=== PATIENT | female | born 2000 | race Caucasian/White ===

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

== ENCOUNTER 2021-12-06 11:25 | Emergency (ER) | payer OTHER, MEDICAID, SELFPAY ==
[2021-12-06 11:40] VITALS: BP 116/63; PULSE 92; RESP 20; TEMP 36.6; O2SAT 100
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
== END 2021-12-06 14:32 | disposition home or self-care (01) ==
PROVIDERS: Emergency Provider Registered Nurse
DX: J30.9 Allergic rhinitis, unspecified (principal); H60.311 Diffuse otitis externa, right ear
CPT/HCPCS: 99213; G0463

== ENCOUNTER 2023-08-22 12:05 | Emergency (ER) | payer OTHER, BC, SELFPAY ==
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
[2023-08-22 12:17] VITALS: BP 123/68; PULSE 86; RESP 16; TEMP 37; O2SAT 100
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
== END 2023-08-22 12:45 | disposition home or self-care (01) ==
PROVIDERS: Emergency Provider Nurse Practitioner Family
DX: R07.81 Pleurodynia (principal); F17.290 Nicotine dependence, other tobacco product, uncomplicated
CPT/HCPCS: 71046; 71100; 99213; G0463

== ENCOUNTER 2023-09-14 19:09 | Emergency (ER) | payer OTHER, BC, SELFPAY ==
[2023-09-14 19:22] VITALS: BP 123/77; PULSE 95; RESP 18; TEMP 36.9; O2SAT 100
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
[2023-09-14 20:18] LABS: EDSTREPNEGPOS1 Presumptive Negative
== END 2023-09-14 20:20 | disposition home or self-care (01) ==
PROVIDERS: Emergency Provider Registered Nurse
DX: J02.9 Acute pharyngitis, unspecified (principal); Z20.822 Contact with and (suspected) exposure to COVID-19; F17.290 Nicotine dependence, other tobacco product, uncomplicated
CPT/HCPCS: 87081; 87426; 87880; 99213; G0463

== ENCOUNTER 2023-11-15 13:58 | Emergency (ER) | payer OTHER, BC, SELFPAY ==
--- NOTE | ~2023-11-15 | XR_ITS ---
EXAMINATION: XR foot RT min 3V DATE: 11/15/2023 14:50 INDICATION: Right foot pain. Injury. TECHNIQUE: 3 views of right foot were obtained. COMPARISON: None. FINDINGS: Alignment is normal. No fracture. Joint spaces are normal. There is an enthesophyte at plan tar aspect of calcaneal tuberosity. IMPRESSION: 1. No fracture. Reviewed, dictated and finalized at location A. IMPRESSION: 1. No fracture.
[2023-11-15 14:10] VITALS: BP 129/83; PULSE 60; RESP 15; TEMP 36.6; O2SAT 100
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
== END 2023-11-15 15:20 | disposition home or self-care (01) ==
PROVIDERS: Emergency Provider Nurse Practitioner Family
DX: S93.504A Unspecified sprain of right lesser toe(s), initial encounter (principal); W22.01XA Walked into wall, initial encounter; F17.290 Nicotine dependence, other tobacco product, uncomplicated
CPT/HCPCS: 73630; 99213; G0463

== ENCOUNTER 2024-03-31 11:17 | Emergency (ER) | payer BC, SELFPAY ==
[2024-03-31 11:22] VITALS: BP 126/69; PULSE 102; RESP 18; TEMP 36.4; O2SAT 100
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
--- OUTSIDE RECORDS SUMMARY | 2024-03-31 11:42 | XMS_ITS | Patient Health Summary ---
Author Organization [facility] Address [address] [place] [address] Care Team Providers Care Analytics Associate Name Role Phone Yovani Negron MD Primary Care Provider [phone] Note from [facility],non-owned Affiliates and Associated Physician Practices is amultiple site organization consisting of ambulatory clinics and hospital sitesin [place], [place], [place] and [place]. This disclosure is being madepursuant to the Care Everywhere program and may not contain all information available regarding this patient. Last updated 17.[facility] Allergies * Adhesive Sensitivity(Rash) -Medium Criticality * Lactose(GI Discomfort) Medications * Be aware that medications may not be up to date on this document. Alwaysverify current medications with the patient. * pantoprazole EC (Protonix) 40 MG tablet(Started 11/19/2021) TAKE 1 TABLET BY MOUTH EVERY DAY Active Problems Problem Noted Date Diagnosed Date Pre-op testing 06/25/2021 Deficiency of other specified B group vitamins 0 08/19/2016 Developmental disorder of scholastic skills 08/08 Major depressive disorder, single episode, moder ate 08/19/2016 Generalized anxiety disorder 08/19/2016 Vitamin D deficiency 06/17/2016 Lichen simplex chronicus 05/08/2014 Excessive and frequent menstruation with regular cycle 04/11/2014 Heartburn 05/02/2012 Resolved Problems Problem Noted Date Diagnosed Date Resolved Date Chlamydia 10/07/2018 06/21/2019 Presence of (intrauterine) c ontraceptive device 10/02/2016 10/07/2018 Encounter for immunization 04/11/2014 0 08/01/2018 Immunizations * Covid Moderna primary monovalent 12+ yr 0.5mL(Given 06/11/2020, 04/20/2020) * DTAP/IPV(Given 10/22/2006) * DTaP VACCINE IM (6wk-6yrs)(Given 10/02/2005, 2001, 2001, 2001) * HEP A PEDS 2 DOSE(Given 10/02/2005) * HEP A VACCINE, ADULT(Given 10/02/2016, 10/02/2005) * HIB-HAEMOPHILUS INFLUENZAE B CONJUGATE VACCINE(Given 2001, 2001, 2001) * HIB-PRP-T 4 DOSE(Given 10/22/2006, 2001, 2001, 2001) * HepB Unspecified formulation(Given 2001, 2001, 2001) * Human Papilloma Virus Ninevalent Vaccine(Given 10/02/2016) * Human Papilloma Virus Quadrivalent Vaccine(Given 08/08/2014) * MENINGOCOCCAL CONJUGATE (MCV4P)(Given 10/02/2016) * MMR/VARICELLA(Given 10/22/2006, 10/02/2005) * PNEUMOCOCCAL PCV7 CONJ, PEDS(Given 10/02/2005) * POLIO IPV(Given 10/02/2005, 2001, 2001, 2001) * Pneumococcal Pcv13 Conj(Given 02/27/2002) * TDAP (7yrs+)(Given 02/08/2013) Social History Tobacco Use Types Packs/Day Years Used Date Smoking Tobacco: Former Cigarettes Smokeless Tobacco: Never Tobacco Cessation:Counseling Given: Not Answered Alcohol Use Standard Drinks/Week Comments Yes 0 (1 standard drink = 0.6 oz pur e alcohol) occasionally PHQ-2 Answer Date Recorded PHQ2 TOTAL SCORE 0 05/20/2021 Comments Yes Sex and Gender Information Value Date Recorded Sex Assigned at Not on file Gender Identity Not on file Sexual Orientation Not on file Last Filed Vital Signs Vital Sign Reading Time Taken Comments Blood Pressure 111/68 03/02/2022 9:24 AM SCIENTIFIC HELPER Pulse 67 03/02/2022 9:24 AM SCIENTIFIC HELPER Temperature 36.6 C (97.9 F) 06/25/2021 11:43 AM CDT Respiratory Rate 12 06/25/2021 12:00 PM CDT Oxygen Saturation 99% 06/25/2021 12:00 PM CDT Inhaled Oxygen Concentration - - Weight 96.6 kg (213 lb) 03/02/2022 9:24 AM SCIENTIFIC HELPER Height 160 cm (5' 3 ) 03/02/2022 9:24 AM SCIENTIFIC HELPER Body Mass Index 37.73 03/02/2022 9:24 AM SCIENTIFIC HELPER Procedures * IN REMOVE CERUMEN IMPACTED W INSTR AUGUSTO(Performed 03/02/2022) Performed for Bilateral impacted cerumen * AUDIOLOGY/TYMPANOMETRY ORDER(Performed 03/02/2022) * IN REMOVE CERUMEN IMPACTED W INSTR AUGUSTO(Performed 10/20/2021) Performed for Ear itching * PATHOLOGY TISSUE(Performed 06/25/2021) Performed for Acute superficial gastritis with hemorrhage, Melena * IN ED EGD FLEX TRANSORAL DX(Performed 06/25/2021) Performed for Acute superficial gastritis with hemorrhage, Melena * EGD(Performed 06/25/2021) * HCG URINE QUALITATIVE - POCT (IP) INTERFACED(Performed 06/25/2021) * HCG URINE QUAL POCT NOTIFICATION(Performed 06/25/2021) Performed for Pre-op testing * CBC W AUTO DIFFERENTIAL(Performed 05/21/2021) Performed for Abdominal pain, RUQ (right upper quadrant) * COMPREHENSIVE METABOLIC PANEL(Performed 05/21/2021) Performed for Abdominal pain, RUQ (right upper quadrant) * US ABDOMEN LIMITED(Performed 05/21/2021) Performed for Right upper quadrant abdominal pain * HCG BETA BLOOD QUANTITATIVE(Performed 02/05/2021) Performed for Bleeding in early (HCC) * IN EAR MICROSCOPY EXAMINATION(Performed 01/15/2021) Performed for Ear itching * AUDIOLOGY/TYMPANOMETRY ORDER(Performed 01/15/2021) * CULTURE URINE(Performed 12/14/2019) Performed for Routine screening for STI (sexually transmitted infection) * C. TRACHOMATIS + N. GONORRHOEAE + TRICH TASHA(Performed 12/13/2019) Performed for Routine screening for STI (sexually transmitted infection) * HCG URINE QUALITATIVE - POINT OF CARE (AMB)(Performed 12/13/2019) Performed for Negative test * URINALYSIS - POINT OF CARE (AMB) SLU(Performed 12/28/2018) Performed for Abdominal pain, unspecified abdominal location * CHLAMYDIA + GC AMPLIFIED PROBE(Performed 12/14/2018) Performed for Exposure to STD * IN EAR MICROSCOPY EXAMINATION(Performed 12/14/2018) Performed for Right ear pain, Decreased hearing of right ear * CULTURE URINE(Performed 12/13/2018) Performed for Acute cystitis without hematuria * IN REMOVAL NON-BIODEG DRUG DELIV IMPLANT(Performed 10/10/2018) Performed for Nexplanon removal * CHLAMYDIA + GC AMPLIFIED PROBE(Performed 10/05/2018) Performed for Painful urination, Screening examination for STD (sexually transmitted disease) * CULTURE URINE(Performed 10/05/2018) Performed for Painful urination * URINALYSIS - POINT OF CARE (AMB) [facility]U(Performed 10/05/2018) Performed for Painful urination * XR FOOT RIGHT 3VW OR MORE(Performed 08/01/2018) Performed for Injury of right foot, initial encounter * CHLAMYDIA + GC + TRICH DNA AMPL(Performed 07/25/2018) Performed for Screen for STD (sexually transmitted disease) * WET PREP - POINT OF CARE (AMB) [facility](Performed 05/17/2018) Performed for Lichen simplex chronicus * CHLAMYDIA + GC AMPLIFIED PROBE(Performed 05/17/2018) Performed for History of chlamydia infection * CULTURE YEAST WITH DIRECT FLUORESCENT USSAN(Performed 05/17/2018) Performed for Lichen simplex chronicus * PH FLUID - POCT (AMB) SLU(Performed 05/17/2018) Performed for Lichen simplex chronicus * FUNGUS SUSAN - POINT OF CARE (AMB) [facility]U(Performed 05/17/2018) Performed for Lichen simplex chronicus * CHLAMYDIA+GC TASHA PAP VIAL(Performed 10/05/2016) * URINALYSIS - POINT OF CARE (AMB) SLU(Performed 10/02/2016) * HCG URINE QUALITATIVE - POCT (IP) [facility](Performed 07/27/2016) * CHLAMYDIA+GC TASHA PAP VIAL(Performed 07/27/2016) * CHLAMYDIA+GC TASHA PAP VIAL(Performed 06/18/2016) * LAB HISTORICAL RESULTS-ONBASE(Performed 06/18/2016) * HCG URINE QUALITATIVE - POCT (IP) [facility](Performed 06/16/2016) * RPR W REFLEX CONFIRM(Performed 06/16/2016) * VITAMIN D 25-HYDROXY(Performed 06/16/2016) * VITAMIN B12(Performed 06/16/2016) * HIV-1 HIV-2 ANTIGEN/ANTIBODY(Performed 06/16/2016) * TSH(Performed 06/16/2016) * CBC W AUTO DIFFERENTIAL(Performed 06/16/2016) * PH FLUID - POCT (AMB) SLU(Performed 01/02/2015) * WET PREP - POINT OF CARE (AMB) SLU(Performed 01/02/2015) * FUNGUS SUSAN - POINT OF CARE (AMB) [facility](Performed 01/02/2015) * PH FLUID - POCT (AMB) SLU(Performed 05/08/2014) * FUNGUS SUSAN - POINT OF CARE (AMB) [facility](Performed 05/08/2014) * WET PREP - POINT OF CARE (AMB) [facility]U(Performed 05/08/2014) * CULTURE FUNGUS OTHER+FUNGUS SMEAR(Performed 05/08/2014) * CULTURE FUNGUS OTHER+FUNGUS SMEAR(Performed 05/04/2012) * WET PREP - POINT OF CARE (AMB) SLU(Performed 05/02/2012) * FUNGUS SUSAN - POINT OF CARE (AMB) [facility](Performed 05/02/2012) Results * IN REMOVE CERUMEN IMPACTED W INSTR AUGUSTO (03/02/2022 9:50 AM SCIENTIFIC HELPER) Narrative Sami Ward MD - 03/02/2022 9:50 AM SCIENTIFIC HELPER Sami Ward MD 03/02/2022 10:11 AM Procedure Note: Cerumen Removal Procedure Details: Informed consent was obtained. The patient was placed in the supine position. The operative microscope used to visualize both ear canals. Large amounts of moderate-severely impacted cerumen were removed with currette and suction. A normal tympanic membrane was then appreciated. The patient tolerated the procedure without complication. The following findings were noted: Mildly narrow canals bilaterally with moderately impacted soft cerumen. Intact TMs with normal landmarks. The patient tolerated procedure well. Complications: None Dr. Luna was present for the entirety of the procedure. Richard Luna MD PROCEDURE/MINOR SURG ICAL ORDERABLES * AUDIOLOGY/TYMPANOMETRY ORDER (03/02/2022 9:03 AM SCIENTIFIC HELPER) Darshan Miller, PhD - 03/02/2022 9:19 AM SCIENTIFIC HELPER Shaina Patel is a 22 year old female was seen for an assessment of their hearing. The patient reports no noted difficulties but has a history of cerumen impaction. There is a report of dizziness. There is a report of tinnitus. There is a report of otalgia. There is not a report of noise exposure. There is a history of hearing loss in the family. There is not a history of previous ear surgery. Results: Puretone air/bone conduction testing revealed normal hearing in the right ear and normal hearing in the left ear. Speech Party Plan Sales Director Thresholds is in good agreement with pure tone average(see speech audiometry for details). Findings were reviewed and discussed with Shaina Patel following the hearing evaluation. Plan: 1. The risks and benefits of my recommendations, as well as other treatment options were discussed today. 2. I recommend that the patient follow up with their facility, ENT or PCP PRN. Darshan Sampson, Ph.D., JANEL., CCC-A Stock Feeder Director, Division of Audiology Department of Otolaryngology- Head & Neck Surgery [facility] Darshan Sampson PhD AUDIOLOGY SERVICES O RDERABLES * IN REMOVE CERUMEN IMPACTED W INSTR UAGUSTO (10/20/2021 2:06 PM CDT) Richard Vick MD - 10/20/2021 2:06 PM CDT Richard Luna MD 10/20/2021 2:09 PM Wet ears bilateral : both ear cleaned under microscope with suctions. cnal wet bilateral middle ear healthy bilateral. mycelog applied to both ears. Richard Luna MD PROCEDURE/MINOR SURG ICAL ORDERABLES * PATHOLOGY TISSUE (06/25/2021 11:21 AM CDT) Case Report Surgical Pathology Report Case: [id number] Authorizing Provider: Julissa Dominguez MD Collected: 06/25/2021 11:21 AM Ordering Location: [facility] Received: 06/25/2021 01:26 PM Pathologist: Jessa Villanueva MD Specimens: A) - Duodenum, random duodenum biopsies- patchy white spotes B) - Gastric, random gastric biopsies - rule out h Pylori 06/26/2021 11:58 AM [facility] Final Diagnosis Small intestine, duodenum patchy white spots, biopsy (A): - Superficial mucosa with no histopathologic abnormality - See comment Stomach, random, biopsy (B): - No histopathologic abnormality - No active inflammation or H. pylori organisms (H&E examination) 06/26/2021 11:58 AM [facility] Microscopic Description and Comment Sections of the duodenum patchy white spots (A) show only superficial mucosa with normal findings for site; deeper involvement by lymphangiectasia or submucosal lesion cannot be assessed. 06/26/2021 11:58 AM [facility] Clinical History The patient is a 21-year-old woman with nausea, vomiting, abdominal pain and melena over one week duration. Operative procedure/findings: EGD - diminutive white patches randomly in the second portion of the duodenum, biopsied; patchy gastric erythema and rare erosions, random biopsies to rule out H. pylori. 06/26/2021 11:58 AM [facility] Gross Description The requisition and specimen(s) are identified with the patient's name Shaina Patel. Received in formalin, specimen A , are 4 pink-khan tissues, 0.1-0.3 cm in greatest dimension and 0.7 x 0.2 x 0.2 cm in aggregate, submitted in toto in cassette A1. Received in formalin, specimen B , are 3 pink-khan tissues, 0.1-0.4 cm in greatest dimension and 0.8 x 0.2 x 0.2 cm in aggregate, submitted in toto in cassette B1. DF 06/26/2021 11:58 AM [facility] Disclaimer The performance characteristics of all immunohistochemical and indirect immunofluorescence stains (if any) cited in this report were determined by the Histopathology Laboratory of [facility]. Some of these tests were developed by our own laboratory and have not been cleared or approved by the US Food and Drug Administration. The FDA does not require this test to go through premarket FDA review. These tests are used for clinical purposes. They should not be regarded as investigational or for research. This laboratory is certified under the Clinical Laboratory Improvement Amendments (CLIA) as qualified to perform high complexity clinical laboratory testing. This case has been personally reviewed and interpreted by the attending (teaching) pathologist. 06/26/2021 11:58 AM CDT [facility] Embedded Images 06/26/2021 11:58 AM CDT [facility] Biopsy, NOS PART OF DUODENUM / Unknown 06/25/2021 11:21 AM CDT 06/25/2021 1:26 PM CDT Comment:Pre-op diagnosis: Acute superficial gastritis with hemorrhage [K29.01] Melena [K92.1] Vomiting, history of melena Biopsy, NOS GASTRIC CONTENTS SPECIMEN / Unknown 06/25/2021 11:22 AM CDT 06/25/2021 1:26 PM CDT Comment:Pre-op diagnosis: Acute superficial gastritis with hemorrhage [K29.01] Melena [K92.1] Vomiting, history of melena Julissa Dominguez MD LAB - PATHOLOGY/CYTO LOGY ORDERABLES Performing Organization Address City/State/[facility] Co de Phone Number [facility] [address] [phone] * EGD (06/25/2021 11:01 AM CDT) Report Endoscopy POC Endoscopy Department Report __ _ Patient Name: Shaina Patel Procedure Date: 06/25/2021 11:01 AM Date of : 2000 Classification: Outpatient Gender: Female Ethnicity: Not or Race: White __ _ Providers: Julissa Dominguez MD, Eneida Turner (Fellow) Referring MD: Yovani Negron (Referring MD) Procedure: Upper GI endoscopy Indications: Epigastric abdominal pain, Melena Medications: Monitored Anesthesia Care Description of Procedure: Pre-Anesthesia Assessment: - Prior to the procedure, a History and Physical was performed, and patient medications and allergies were reviewed. The patient's tolerance of previous anesthesia was also reviewed. The risks and benefits of the procedure and the sedation options and risks were discussed with the patient. All questions were answered, and informed consent was obtained. Prior Anticoagulants: The patient has taken no previous anticoagulant or antiplatelet agents. ASA Grade Assessment: II - A patient with mild systemic disease. After reviewing the risks and benefits, the patient was deemed in satisfactory condition to undergo the procedure. After obtaining informed consent, the endoscope was passed under direct vision. Throughout the procedure, the patient's blood pressure, pulse, and oxygen saturations were monitored continuously. The Endoscope was introduced through the mouth, and advanced to the second part of duodenum. The upper GI endoscopy was accomplished without difficulty. The patient tolerated the procedure well. Findings: Esophagogastric landmarks were identified: the Z-line was found at 36 cm, the gastroesophageal junction was found at 36 cm and the site of hiatal narrowing was found at 39 cm from the incisors. The Z-line was slightly irregular. A 4 cm hiatal hernia was present. A few localized erosions and erythema with no bleeding and no stigmata of recent bleeding were found in the gastric body. Biopsies were taken with a cold forceps for Helicobacter pylori testing. The cardia and gastric fundus were normal on retroflexion. Scattered mild mucosal changes characterized by punctated white spots were found in the second portion of the duodenum. Biopsies were taken with a cold forceps for histology. Estimated Blood Loss: Estimated blood loss was minimal. Complications: No immediate complications. Impression: - Esophagogastric landmarks identified. - Z-line irregular. - 4 cm hiatal hernia. - Gastric erosions and erythema with no bleeding and no stigmata of recent bleeding. Biopsied. - Mucosal changes in the duodenum. Biopsied. Recommendation: - Patient has a contact number available for emergencies. The signs and symptoms of potential delayed complications were discussed with the patient. Return to normal activities tomorrow. Written discharge instructions were provided to the patient. - Resume previous diet. - Continue present medications. - Await pathology results. - No aspirin, ibuprofen, naproxen, or other non-steroidal anti-inflammatory drugs. - Continue PPI - Return to referring physician as previously scheduled. - Follow up in GI clinic appointment will be scheduled. Attending Participation: I was present and participated during the entire procedure, including non-flores portions. Procedure Code(s): --- Professional --- 10436, Esophagogastroduode noscopy, flexible, transoral; with biopsy, single or multiple Diagnosis Code(s): --- Professional --- K22.8, Other specified diseases of esophagus K44.9, Diaphragmatic hernia without obstruction or gangrene K25.9, Gastric ulcer, unspecified as acute or chronic, without hemorrhage or perforation K31.89, Other diseases of stomach and duodenum R10.13, Epigastric pain K92.1, Melena (includes Hematochezia) CPT copyright 2019 [employer]. All rights reserved. The codes documented in this report are preliminary and upon health promoter review may be revised to meet current compliance requirements. Julissa Dominguez MD 06/25/2021 11:34:36 AM This report has been signed electronically. Note Initiated On: 06/25/2021 11:01 AM Number of Addenda: [address] 06/25/2021 11:0 1 AM CDT Julissa Dominguez MD GI PROCEDURE ORDERAB L[facility] * HCG URINE QUALITATIVE - POCT (IP) INTERFACED (06/25/2021 10:29 AM CDT) HCG Qual Urine Negative Negative 06/25/2021 10:36 AM CDT [facility] Urine URINE / Unknown 06/25/2021 1 0:29 AM CDT 06/25/2021 10:36 AM CDT Julissa Dominguez MD LAB - POINT OF CARE ORDERABLES [facility] [address] [place] [id number], [facility] [phone] * HCG URINE QUAL POCT NOTIFICATION (06/25/2021 10:24 AM CDT) Comment Notification Label Only - See Separate Report 06/25/2021 11:34 AM CDT [facility] Urine URINE / Unknown 06/25/2021 1 0:24 AM CDT 06/25/2021 10:24 AM CDT Julissa Dominguez MD LAB - URINALYSIS ORD ERABLES Performing Organization Address City/[facility]/ZIP Co de Phone Number [address] [address], [facility] [phone] * CBC WITH DIFFERENTIAL (05/21/2021 2:05 PM CDT) Only the most recent of2 resultswithin the time period is included. WBC 6.5 3.5 - 10.5 10 3/uL 05/21/2021 2:39 PM [facility] RBC 4.37 3.80 - 5.20 10 6/uL 05/21/2021 2:39 PM [facility] Hemoglobin 13.2 12.0 - 15.6 g/dL 05/21/2021 2:39 PM [facility] Hematocrit 40.2 35.0 - 45.0 % 05/21/2021 2:39 PM [facility] MCV 92.0 80.7 - 98.3 fL 05/21/2021 2:39 PM [facility] MCH 30.2 26.7 - 34.0 pg 05/21/2021 2:39 PM [facility] MCHC 32.8 30.8 - 35.9 g/dL 05/21/2021 2:39 PM [facility] Platelet Count 274 150 - 400 10 3/uL 05/21/2021 2:39 PM [facility] RDW-SD 43.0 36.0 - 50.0 fL 05/21/2021 2:39 PM [facility] RDW-CV 12.7 11.2 - 14.8 % 05/21/2021 2:39 PM [facility] MPV 10.3 9.4 - 12.9 fL 05/21/2021 2:39 PM [facility] nRBC Absolute 0.00 0 10 3/uL 05/21/2021 2:39 PM [facility] nRBC Auto 0.0 0 /100 WBC 05/21/2021 2:39 PM [facility] Neutrophils % 54.8 35.0 - 70.0 % 05/21/2021 2:39 PM [facility] Lymphocytes % 33.8 20.0 - 43.0 % 05/21/2021 2:39 PM [facility] Monocytes % 7.7 5.0 - 13.0 % 05/21/2021 2:39 PM [facility] Eosinophils % 2.5 0.0 - 6.0 % 05/21/2021 2:39 PM [facility] Basophil % 0.9 0.0 - 2.0 % 05/21/2021 2:39 PM [facility] Neutrophils Absolute 3.5 1.6 - 7.0 10 3/uL 05/21/2021 2:39 PM [facility] Lymphocyte Absolute 2.2 1.1 - 3.9 10 3/uL 05/21/2021 2:39 PM [facility] Monocytes Absolute 0.50 0.26 - 1.07 10 3/uL 05/21/2021 2:39 PM [facility] Eosinophils Absolute 0.16 0.00 - 0.47 10 3/uL 05/21/2021 2:39 PM [facility] Basophils Absolute 0.06 0.00 - 0.08 10 3/uL 05/21/2021 2:39 PM [facility] Immature Granulocytes % 0.3 0.0 - 1.0 % 05/21/2021 2:39 PM [facility] Immature Granulocytes Absolute 0.02 05/21/2021 2:39 PM [facility] Blood BLOOD SPECIMEN / Unknown Lab Venipuncture / Unknown 05/21/2021 2:05 PM CDT 05/21/2021 2:31 PM CDT Adwoa Covington PA-C LAB - HEMATOLOGY OR DERABLES [facility] [address] [place] [address], [facility] [phone] * COMPREHENSIVE METABOLIC PANEL (05/21/2021 2:05 PM CDT) BUN 13 7 - 26 mg/dL 05/21/2021 2:59 PM [facility] Creatinine 0.69 0.56 - 0.96 mg/dL 05/21/2021 2:59 PM [facility] Sodium 143 136 - 145 mmol/L 05/21/2021 2:59 PM [facility] Potassium 3.5 3.5 - 4.5 mmol/L 05/21/2021 2:59 PM [facility] Chloride 106 98 - 107 mmol/L 05/21/2021 2:59 PM [facility] CO2 24 22 - 29 mmol/L 05/21/2021 2:59 PM [facility] Glucose 92 70 - 115 mg/dL 05/21/2021 2:59 PM [facility] Calcium 9.2 8.4 - 10.2 mg/dL 05/21/2021 2:59 PM [facility] Protein Total 7.3 6.0 - 8.3 g/dL 05/21/2021 2:59 PM [facility] Albumin 4.3 3.4 - 5.0 g/dL 05/21/2021 2:59 PM [facility] Bilirubin Total 0.6 0.2 - 1.2 mg/dL 05/21/2021 2:59 PM [facility] Alkaline Phosphatase 62 40 - 150 U/L 05/21/2021 2:59 PM [facility] ALT 18 5 - 55 U/L 05/21/2021 2:59 PM [facility] AST 17 5 - 34 U/L 05/21/2021 2:59 PM CDT [facility] Anion Gap 17 8 - 18 05/21/2021 2:59 PM CDT [facility] BUN/Creatinine Ratio 19 7 - 23 05/21/2021 2:59 PM CDT [facility] Osmolality Calculated 296 270 - 300 mOsm/kg 05/21/2021 2:59 PM CDT [facility] Albumin/Globulin Ratio 1.4 1.1 - 2.3 05/21/2021 2:59 PM CDT [facility] eGFR by CKD-EPI >90 >=90 mL/min/1.7 3 m2 05/21/2021 2:59 PM CDT [facility] Blood BLOOD SPECIMEN / Unknown Lab Venipuncture / Unknown 05/21/2021 2:05 PM CDT 05/21/2021 2:31 PM CDT Adwoa Covington PA-C LAB - CHEMISTRY ORD ERABLES [facility] [address] [place] [address], [facility] [phone] * US ABDOMEN LIMITED (05/21/2021 1:53 PM CDT) Anatomical Region Laterality Modality Abdomen Ultrasound 05/21/2021 2:09 PM CDT Impressions 05/21/2021 2:34 PM CDT IMPRESSION: 1.No discrete hepatic lesion or intrahepatic biliary dilation. Patent hepatic vasculature. 2.No evidence of cholelithiasis or acute cholecystitis. Dictated by Neeraj Gordillo MD (Resident). IDr. Garcia M.D. have personally reviewed and interpreted this examination/study. This report was electronically signed by Garcia AKINS M.D. on 05/21/2021 2:34 PM . Narrative 05/21/2021 2:34 PM CDT EXAM: Limited abdominal ultrasound HISTORY: R10.11: Right upper quadrant abdominal pain COMPARISON: No comparison images are available in the PACS system at the time of this dictation. FINDINGS: The liver is normal in echotexture and echogenicity with a smooth surface contour. No discrete hepatic mass or intrahepatic biliary dilatation is seen. Color Doppler evaluation demonstrates patency of the hepatic and portal veins. No gallstone, gallbladder wall thickening or pericholecystic fluid is seen. Sonographic Johns's sign is negative. The common bile duct measures 4 mm. The right kidney measures 11.6 x 3.6 x 4.6 cm. Limited views of the right kidney show no hydronephrosis, nephrolithiasis, or solid renal mass. The visible pancreas is normal in echogenicity. The spleen measures 11.5 cm. A 2.1 x 2 cm splenule is seen at splenic hilum. No ascites is present. Procedure Note Ade Akins MD - 05/21/2021 EXAM: Limited abdominal ultrasound HISTORY: R10.11: Right upper quadrant abdominal pain COMPARISON: No comparison images are available in the PACS system at the time of this dictation. FINDINGS: The liver is normal in echotexture and echogenicity with a smoothsurface contour. No discrete hepatic mass or intrahepatic biliary dilatation is seen.Color Doppler evaluation demonstrates patency of the hepatic and portal veins. No gallstone, gallbladder wall thickening or pericholecystic fluid is seen. Sonographic Johns's sign is negative. The common bile ductmeasures 4 mm. The right kidney measures 11.6 x 3.6 x 4.6 cm. Limited views of theright kidney show no hydronephrosis, nephrolithiasis, or solid renal mass. The visible pancreas is normal in echogenicity. The spleen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
--- OUTSIDE RECORDS SUMMARY | 2024-03-31 11:42 | XMS_ITS | Referral Summary ---
Author Organization [facility] Address [address] [place] [address] Care Team Providers Care Insurance Verification Rep Name Role Phone No, Physician Primary Care Provider [phone] Allergies Active Allergy Reactions Criticality Noted Date Comments Adhesive Rash Medium 06/25/2021 Lactose Stomach upset Low 05/20/2021 Medications PNV,calcium 72-iron,carb-fo lic ( PLUS WITH IRON) 29 mg iron- 1 mg tablet Vitamins Oral Tablet QTY: 0 tablet Days: 0 Refills: 0 Written: 09/05/21 Patient Instructions: 09/06/19 22 Active benzocaine-ment hoL (DERMOPLAST) 20-0.5 % aerosolIndicati ons:Minor Skin Wound Pain Apply 1 application (1 spray total) topically as needed for other (perianal area for pain) 1 g 1 03/29/19 23 Active ibuprofen (ADVIL,MOTRIN) 600 mg tabletIndicatio ns:Cramps Take 1 tablet (600 mg total) by mouth every 6 (six) hours as needed for pain 30 tablet 1 03/29/19 23 Active butalbital-acet aminophen-caffe ine (ESGIC) 50-325-40 mg per tabletIndicatio ns:Acute intractable tension-type headache Take 1 tablet by mouth every 6 (six) hours as needed for headaches Collaborating physician Clem Marte MD 15 tablet 09/18/19 24 Active naproxen (NAPROSYN) 500 mg tabletIndicatio ns:Acute viral syndrome,Histor y of fever,Acute intractable tension-type headache Take 1 tablet (500 mg total) by mouth 2 (two) times a day with meals Take as directed to treat fever and headache. Collaborating physician Clem Marte MD 30 tablet 09/18/19 24 Active prochlorperazin e (COMPAZINE) 5 mg tabletIndicatio ns:Acute viral syndrome,Acute intractable tension-type headache,Nausea Take 1 tablet (5 mg total) by mouth every 8 (eight) hours as needed for nausea (And headache) Collaborating physician Clem Marte MD 20 tablet 09/18/19 24 Active diphenhydrAMINE (BENADRYL) 25 mg capsuleIndicati ons:Acute viral syndrome,Acute intractable tension-type headache,Nausea Take 1-2 tablet/capsule (25-50 mg total) by mouth every 8 (eight) hours as needed (Take as directed to help prevent jitteriness from prochlorperazine and to help alleviate headache) Collaborating physician Clem Marte MD 30 tablet/caps ule 09/18/19 24 Active Active Problems Problem Noted Date Diagnosed Date Acute viral syndrome 09/18/2023 History of fever 09/18/2023 History of strep pharyngitis 09/18/2023 Acute intractable tension-type headache 09/18/19 24 Nausea 09/18/2023 39 weeks gestation of 03/28/2022 infant of 38 completed weeks of gestatio n 03/28/2022 Social History Tobacco Use Types Packs/Day Years Used Date Smoking Tobacco: Every Day Vaping Smokeless Tobacco: Never Tobacco Cessation:Ready to Q uit: Not Asked; Counseling Given: Not Answered Social Connection and Isolat ion Panel [NHANES] Answer Date Recorded In a typical week, how many times do you talk on the phone with family, friends, or neighbors? More than three times a week 03/27/2022 How often do you get togethe r with friends or relatives? More than three times a week 03/27/2022 How often do you attend [facility] or cheondoism services? More than 4 times per year 03/27/2022 Do you belong to any clubs o r organizations such as jewish groups, unions, fraternal or athletic groups, or school groups? Yes 03/27/2022 How often do you attend meet ings of the clubs or organizations you belong to? 1 to 4 times per year 03/27/2022 Are you , , di vorced, , never , or living with a partner? Never 03/27/2022 AUDIT-C Answer Date Recorded Q1: How often do you have a drink containing alcohol? Never 03/27/2022 Q2: How many drinks containi ng alcohol do you have on a typical day when you are drinking? Patient does not drink 3 Q3: How often do you have si x or more drinks on one occasion? Never 03/27/2022 Overall Financial Resource Strain (CARDIA) Answe r Date Recorded How hard is it for you to pa y for the very basics like food, housing, medical care, and heating? Not hard at all 03/27/2022 PHQ-2 Answer Date Recorded PHQ-2 Total Score (If total score is 3 or more points, staff should administer the PHQ-9) 0 03/27/2022 [facility] - Occupational Stress Questionnaire Answer Date Recorded Do you feel stress - tense, restless, nervous, or anxious, or unable to sleep at night because your mind is troubled all the time - these days? Not at all 03/27/2022 Exercise Vital Sign Answer Date Recorde d On average, how many days pe r week do you engage in moderate to strenuous exercise (like a brisk walk)? 4 days 03/27/2022 On average, how many minutes do you engage in exercise at this level? 30 min 03/27/2022 Hunger Vital Sign Answer Date Recorded Within the past 12 months, y ou worried that your food would run out before you got the money to buy more. Never true 03/27/19 23 Within the past 12 months, t he food you bought just didn't last and you didn't have money to get more. Never true 03/27/2022 PRAPARE - Transportation Answer Date Re corded In the past 12 months, has l ack of transportation kept you from medical appointments or from getting medications? No 03/11 In the past 12 months, has l ack of transportation kept you from meetings, work, or from getting things needed for daily living? No 03/27/2022 Housing Stability Vital Sign Answer Tu e Recorded In the last 12 months, was t here a time when you were not able to pay the mortgage or rent on time? No 03/27/2022 In the last 12 months, how many places have you lived? 1 03/27/2022 In the last 12 months, was t here a time when you did not have a steady place to sleep or slept in a residential (including now)? No 03/27/2022 Personal Safety Answer Date Recorded Have you ever been in or are you currently in a harmful physical or emotional relationship or is someone making you feel afraid or unsafe? 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 Gender Identity Not on file Sexual Orientation Not on file Last Filed Vital Signs Vital Sign Reading Time Taken Comments Blood Pressure 145/79 09/18/2023 11:22 AM CDT Pulse 106 09/18/2023 11:22 AM CDT Temperature 37.4 C (99.3 F) 09/18/2023 11:22 AM CDT Respiratory Rate 18 09/18/2023 11:22 AM CDT Oxygen Saturation 100% 09/18/2023 11:22 AM CDT Inhaled Oxygen Concentration - - Weight 77.1 kg (170 lb) 09/18/2023 11:22 AM CDT Height 160 cm (5' 3 ) 09/18/2023 11:22 AM CDT Body Mass Index 30.11 09/18/2023 11:22 AM CDT Plan of Treatment Not on file Insurance [facility] Advance Directives For more information, please contact: [phone] * Full Code (Latest Code Status on File) Date Activated Date Inactivated Comments 03/28/2022 9:14 AM 03/30/2022 6:40 PM * Full Code Date Activated Date Inactivated Comments 03/28/2022 8:47 AM 03/28/2022 9:14 AM Full CPR in case of cardiopulmonary arrest * Full Code Date Activated Date Inactivated Comments 03/28/2022 12:16 AM 03/28/2022 8:47 AM Full CPR in case of cardiopulmonary arrest Care Teams Insurance Verification Rep Relationship Specialty Start Date End Date No, Physician PCP - General 09/18/23
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
--- OUTSIDE RECORDS SUMMARY | 2024-03-31 11:42 | XMS_ITS | Clinical Summary ---
Author Organization [facility] Address [address] [place] [address] Care Team Providers Care [employer] Controls Engineer Name Role Phone Yovani Negron MD Primary Care Provider [phone] Source Comments [facility],non-owned Affiliates and Associated Physician Practices is amultiple site organization consisting of ambulatory clinics and hospital sitesin [place], [place], [place] and [place]. This disclosure is being madepursuant to the Care Everywhere program and may not contain all information available regarding this patient. Last updated 17.[facility] Allergies Active Allergy Reactions Criticality Noted Date Comments Adhesive Sensitivity Rash Medium 06/25/2021 Lactose GI Discomfort 05/20/2021 Medications * Be aware that medications may not be up to date on this document. Alwaysverify current medications with the patient. Medication Sig Dispensed Refills Start Date End Date Status pantoprazole EC (Protonix) 40 MG tablet TAKE 1 TABLET BY MOUTH EVERY DAY 30 tablet 11/19/2021 Active Additional Information Patient not taking.Reported on 03/02/2022 Active Problems Problem Noted Date Diagnosed Date Pre-op testing 06/25/2021 Deficiency of other specified B group vitamins 0 08/19/2016 Developmental disorder of scholastic skills 08/08 Major depressive disorder, single episode, moder ate 08/19/2016 Generalized anxiety disorder 08/19/2016 Vitamin D deficiency 06/17/2016 Lichen simplex chronicus 05/08/2014 Excessive and frequent menstruation with regular cycle 04/11/2014 Heartburn 05/02/2012 Comments Yes Resolved Problems Problem Noted Date Diagnosed Date Resolved Date Chlamydia 10/07/2018 06/21/2019 Presence of (intrauterine) c ontraceptive device 10/02/2016 10/07/2018 Overview (05/10/2017): Placed in July 2016. Encounter for immunization 04/11/2014 0 08/01/2018 Immunizations Name Administration Dates Next Due Covid Moderna primary monova lent 12+ yr 0.5mL 06/11/2020,04/20/2020 DTAP/IPV 10/22/2006 DTaP VACCINE IM (6wk-6yrs) 10/02/2005,,2001,04/22 HEP A PEDS 2 DOSE 10/02/2005 HEP A VACCINE, ADULT 10/02/2016,10/02/2005 HIB-HAEMOPHILUS INFLUENZAE B CONJUGATE VACCINE 2001,2001,2001 HIB-PRP-T 4 DOSE 10/22/2006, 2,2001,04/22 HepB Unspecified formulation 2001,03/22/19 02,2001 Human Papilloma Virus Nineva lent Vaccine 10/02/2016 Human Papilloma Virus Emanuel valent Vaccine 08/08/2014 MENINGOCOCCAL CONJUGATE (MCV4P) 10/02/2016 MMR/VARICELLA 10/22/2006,10/02/2005 PNEUMOCOCCAL PCV7 CONJ, PEDS 10/02/2005 POLIO IPV 10/02/2005, 2,2001,04/22 Pneumococcal Pcv13 Conj 02/27/2002 TDAP (7yrs+) 02/08/2013 Family History Medical History Relation Name Comments Rashes/Skin Problems Father Elevated Lipids Maternal Grandfather Heart Disease Maternal Grandfather Elevated Lipids Maternal Grandmother Arthritis Mother Asthma Mother Migraine Mother Rashes/Skin Problems Mother Elevated Lipids Paternal Grandfather Heart Disease Paternal Grandfather Cancer - Breast Paternal Grandmother Cancer - Colon Paternal Grandmother Elevated Lipids Paternal Grandmother Relation Name Status Comments Father Maternal Grandfather Maternal Grandmother Mother Paternal Grandfather Paternal Grandmother Social History Tobacco Use Types Packs/Day Years [...] Comments Blood Pressure 111/68 03/02/2022 9:24 AM DRUG DEPARTMENT WORKER Pulse 67 03/02/2022 9:24 AM DRUG DEPARTMENT WORKER Temperature 36.6 C (97.9 F) 06/25/2021 11:43 AM CDT Respiratory Rate 12 06/25/2021 12:00 PM CDT Oxygen Saturation 99% 06/25/2021 12:00 PM CDT Inhaled Oxygen Concentration - - Weight 96.6 kg (213 lb) 03/02/2022 9:24 AM DRUG DEPARTMENT WORKER Height 160 cm (5' 3 ) 03/02/2022 9:24 AM DRUG DEPARTMENT WORKER Body Mass Index 37.73 03/02/2022 9:24 AM DRUG DEPARTMENT WORKER Plan of Treatment Health Maintenance Due Date Last Done Comments PAP SMEAR 2001 MENINGOCOCCAL (Group B) VACCINE (1 of 2 - Standard) 2017 HEPATITIS C SCREENING 02/12/2019 CHLAMYDIA/GONORRHEA SCREENING 12/15/2019 12/14/2018, 10/05/2018, 07/25/2018, Additional history exists DTAP/TDAP/TD VACCINES (6 - Td or Tdap) 02/08/2023 02/08/2013, 10/22/2006, 10/02/2005, Additional history exists COVID-19 VACCINE ( season) 2023 06/11/2020, 04/20/2020 INFLUENZA VACCINE (#1) 2023 DEPRESSION SCREENING 02/09/2024 10/20/2021 ZOSTER VACCINE (1 of 2) 2051 Respiratory Syncytial Virus (RSV) Vaccine Pt: or over 60 yrs (1 - 1-dose 75+ series) 02/17/2076 HEPATITIS B VACCINE Completed 2001, 2001, 2001 PNEUMOCOCCAL VACCINE Completed 10/02/2005, 02/27/19 03 HIB VACCINE Aged Out 10/22/2006, 12/10, 2001, Additional history exists No longer eligible based on patient's age to complete this topic HIV SCREENING Completed 06/16/2016 HPV VACCINE Completed 10/02/2016, 08/08/2014 MENINGOCOCCAL VACCINE Aged Out 10/02/2016 No kareen jeannette eligible based on patient's age to complete this topic Procedures Procedure Name Priority Date/Time Associated Diagnosis Comments CHLAMYDIA + GC AMPLIFIED PROBE Routine 12/14/2018 8:18 AM DRUG DEPARTMENT WORKER Exposure to STD HIV-1 HIV-2 ANTIGEN/ANTIBODY Routine 06/16/2016 11:13 AM CDT from Last 3 Months or Most Recently Relevant to Health Maintenance Results * CHLAMYDIA + GC AMPLIFIED PROBE (12/14/2018 8:18 AM DRUG DEPARTMENT WORKER) Chlamydia trachomatis RNA NOT DETECTED NOT DETECTED [facility] GC RNA NOT DETECTED NOT DETECTED [facility] Please Note [facility] Comment: This test was performed using the APTIMA COMBO2 Assay ([employer] The analytical performance characteristics of this assay, when used to test SurePath specimens have been determined by [employer]. Test Performed at: [facility] [id number] [place] [address] KRISTI RICKS DO,MPH Microbiology URINE / Unknown 12/14/2018 8 :18 AM DRUG DEPARTMENT WORKER 12/14/2018 8:19 AM DRUG DEPARTMENT WORKER Aurora Nuñez SPEECH ASSISTANT-CNM LAB - MICROBIOLOGY ORDERABLES [facility] [id number] [place] [address] * HIV-1 HIV-2 ANTIGEN/ANTIBODY (06/16/2016 11:13 AM CDT) HIV Antigen/Antibody 4th Generation NON-REACT LAVON NON-REACT LAVON [facility] ([facility]) Comment: HIV-1 antigen and HIV-1/HIV-2 antibodies [...] purpose. For additional information please refer to http://education.Clone/faq/EDF910 (This link is being provided for informational/ educational purposes only.) The performance of this assay has not been clinically validated in patients less than 2 years old. REPORT COMMENT: FASTING:NO Test Performed at: [facility] [address] [place] [address] KRISTI RICKS DO,MPH 06/16/2016 11:1 3 AM CDT 06/16/2016 11:14 AM CDT Shelbie Ward MD LAB - HEMATOLOGY ORD ERABLES [facility] ([facility]) from Last 3 Months or Most Recently Relevant to Health Maintenance Care [employer] Controls Engineer Relationship Specialty Start Date End Date Yovani Negron MD PCP - General 11/18/18
--- OUTSIDE RECORDS SUMMARY | 2024-03-31 11:42 | XMS_ITS | Clinical Summary ---
Author Organization [facility] Address [address] [place] [phone] Phone Care Team Providers Care Pie Baker Name Role Phone KELSI SANDRA MD Primary Care Provider Reason for Visit and Chief Complaint RETURN OB EXAM Plan of Treatment No Plan of Treatment Recorded Assessments Includes: Assessments from this encounter No Assessments Recorded Medical Equipment - Implanted Devices Includes: Current Devices No Medical Equipment Recorded Medications Includes: Medications discussed during this encounter and other current Medications Current Medications (continue as prescribed) Tylenol 325 MG Oral Tablet 03/19/2022 Provider: Diagnosis: Last Documented On 3 3:26PM By ABBE AVILES ; [facility] 19 Oral Tablet 09/05/2021 Provider: [facility] Diagnosis: One tablet daily Last Documented On 2 11:10AM By MAGDI MAXWELL [facility] ; [facility] Medications Administered Includes: Administered Medications from this encounter No Administered Medications Recorded Vital Signs Includes: Vital Signs from this encounter Vital Name 03/19/2022 03:30P Blood Pressure Sitting (mmHg) 104/62 Weight (lb) 208 Last Documented: On 03/19/2022 3:30PM ; [facility] Results Includes: Results discussed during this encounter No Results Recorded For Specified Dates History of Present Illness Includes: History of Present Illness from this encounter OPAL SCHRADER is a 22 year old female. - Allergy list reviewed - Medication list reviewed Social History No Social History Recorded - Smoking Status Unknown Medical History Includes: Medical History addressed during this encounter No Medical History Recorded Family History Includes: Family History addressed during this encounter No Family History Recorded Review of Systems Includes: Review of Systems from this encounter No Review of Systems Recorded Mental Status Includes: Mental Status from this encounter No Mental Status Recorded Functional Status Includes: Functional Status from this encounter No Functional Status Recorded Physical Exam Includes: Physical Exam from this encounter Allergies Includes: Active Allergies No Known Allergies Encounters Encounter Provider Location Date Check-In Time Check- Out Time Diagnosis RETURN OB EXAM KELSI SANDRA MD [facility] [place] 3:23PM 03/20/2022 7:42AM Insurance Includes: Active Insurance Policies Plan Name Member ID Group # Subscriber Relationship Effect maira Dates 1 - [facility] PLANS [id number] TATY SCHRADER Self Clinical Notes Includes: Clinical Notes from this encounter * Progress note Date Encounter Last Documented by 03/19/2022 RETURN OB EXAM Last documented on 03/19/2022; 3:56 PM, KELSI SANDRA MD; [facility] History of Present Illness TATY SCHRADER is a 22 year old female. - Allergy list reviewed - Medication list reviewed Current Medication - 19 Oral Tablet One tablet daily, 30 days, 11 refills - Tylenol 325 MG Oral Tablet 0 days, 0 refills Allergies - No Known Allergies Physical Findings - Vitals taken 03/19/2022 03:30 pm BP-Sitting 104/62 mmHg Weight 208 lbs OB Visit Return Visit Risk Factors Drug [...] 0 JUVENCIO: 04/08/2022 (by ultrasound) Gestational Age: 37 weeks 1 day Weight: 208 lb Baseline Weight: 232 lb Weight Change: -24 lb UA Dipstick Protein: Negative Glucose: Negative Nitrite: Negative Leukocyte: Negative Blood: Negative Ketones: Negative Movement (as per patient): positive Uterine Size/Fundal Height: 37 cm Presentation: vertex Heart Rate: 150 bpm Edema: None Cervix: 1cm/90%/-2 Shea, pts mom present today; Pt states she feels good baby movement. She had contractions this morning, and they just kind of faded away. Still having emesis every morning, usually fine the rest of the day after 9am. cx: no change; PIH labs WNL last week; u/s with low normal SHANNA: NST: WNL; will do weekly BPP/SHANNA and NST; labor sx discussed; Education Topics Labor Signs Educational material discussed with patient. Plan StartCited - Oligohydramnios, third trimester, not applicable or unsp Ultrasound (OB)/ULTRASOUND: LIMITED OB ULTRASOUND Instructions: needs weekly BPP and SHANNA (last 03/18/22) (hold and call). EndCited StartCited - Other Follow-up needs weekly BPP/SHANNA (order generated); NST to follow; return OB visits weekly (30 min). EndCited
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
--- OUTSIDE RECORDS SUMMARY | 2024-03-31 11:42 | XMS_ITS | Referral Summary ---
Author Organization [facility] Address [address] [facility] [place] [address] Care Team Providers Care Christmas Tree Grower Name Role Phone Yovani Negron MD Primary Care Provider [phone] Source Comments [facility],non-owned Affiliates and Associated Physician Practices is amultiple site organization consisting of ambulatory clinics and hospital sitesin [place], [place], [place] and [place]. This disclosure is being madepursuant to the Care Everywhere program and may not contain all information available regarding this patient. Last updated 17.[facility] Allergies Active Allergy Reactions Criticality Noted Date [...] Pneumococcal Pcv13 Conj 02/27/2002 TDAP (7yrs+) 02/08/2013 Social History Tobacco Use Types Packs/Day Years [...] Comments Blood Pressure 111/68 03/02/2022 9:24 AM FUGITIVE DETECTIVE Pulse 67 03/02/2022 9:24 AM FUGITIVE DETECTIVE Temperature 36.6 C (97.9 F) 06/25/2021 11:43 AM CDT Respiratory Rate 12 06/25/2021 12:00 PM CDT Oxygen Saturation 99% 06/25/2021 12:00 PM CDT Inhaled Oxygen Concentration - - Weight 96.6 kg (213 lb) 03/02/2022 9:24 AM FUGITIVE DETECTIVE Height 160 cm (5' 3 ) 03/02/2022 9:24 AM FUGITIVE DETECTIVE Body Mass Index 37.73 03/02/2022 9:24 AM FUGITIVE DETECTIVE Plan of Treatment Not on file Procedures Procedure Name Priority Date/Time Associated Diagnosis Comments CHLAMYDIA + GC AMPLIFIED PROBE Routine 12/14/2018 8:18 AM FUGITIVE DETECTIVE Exposure to STD HIV-1 HIV-2 ANTIGEN/ANTIBODY Routine 06/16/2016 11:13 AM CDT from Last 3 Months or Most Recently Relevant to Health Maintenance Results * CHLAMYDIA + GC AMPLIFIED PROBE (12/14/2018 8:18 AM FUGITIVE DETECTIVE) [facility] Chlamydia trachomatis RNA NOT DETECTED NOT DETECTED [facility] GC RNA NOT DETECTED NOT DETECTED [facility] Please Note [facility] Comment: This test was performed using the APTIMA COMBO2 Assay ([employer] The analytical performance characteristics of this assay, when used to test SurePath specimens have been determined by Pradama. Test Performed at: [facility] [id number] [place] [address] KRISTI RICKS DO,MPH Microbiology URINE / Unknown 12/14/2018 8 :18 AM FUGITIVE DETECTIVE 12/14/2018 8:19 AM FUGITIVE DETECTIVE Aurora Nuñez APRN-CNM LAB - MICROBIOLOGY ORDERABLES [facility] [address] [place] [address] * HIV-1 HIV-2 ANTIGEN/ANTIBODY (06/16/2016 11:13 AM CDT) HIV Antigen/Antibody 4th Generation NON-REACT LAVON NON-REACT LAVON [facility] ([facility]) Comment: HIV-1 antigen and HIV-1/HIV-2 antibodies were [...] purpose. For additional information please refer to http://education.Pelikon/faq/JTW501 (This link is being provided for informational/ educational purposes only.) The performance of this assay has not been clinically validated in patients less than 2 years old. REPORT COMMENT: FASTING:NO Test Performed at: [facility] [address] [place] [address] KRISTI RICKS DO,MPH 06/16/2016 11:1 3 AM CDT 06/16/2016 11:14 AM CDT Shelbie Ward MD LAB - HEMATOLOGY ORD ERABLES [facility] ([facility]) from Last 3 Months or Most Recently Relevant to Health Maintenance Care Teams Christmas Tree Grower Relationship Specialty Start Date End Date Yovani Negron MD PCP - General 11/18/18
--- OUTSIDE RECORDS SUMMARY | 2024-03-31 11:42 | XMS_ITS | Clinical Summary ---
Author Organization [facility] Address [address] [place] [address] Care Team Providers Care Rock Crushing Machine Operator Name Role Phone No, Physician Primary Care Provider [phone] Allergies Active Allergy Reactions Criticality Noted Date [...] week 03/27/2022 How often do you attend [facility] or temple services? More than 4 times per year 03/27/2022 Do you belong to any clubs o r organizations such as pentecostal groups, unions, fraternal or athletic groups, or [...] staff should administer the PHQ-9) 0 03/27/2022 [facility] of Occupat ional Health - Occupational Stress [...] place to sleep or slept in a skilled nursing (including now)? No 03/27/2022 Personal Safety Answer Date Recorded Have you ever been in or are you currently in a harmful physical or emotional relationship or is someone making you feel afraid or unsafe? Denies 09/18/2023 Comments No Sex and Gender Information Value Date Recorded Sex Assigned at Not on file Legal Sex Female 11:34 AM GAS STATION OPERATOR Gender Identity Not on file Sexual Orientation Not on file Obstetrics History Para Term AB IAB SAB Ectopic Multiple Livin g Live Births 2 1 1 0 1 1 0 1 1 Date Outcome GA Total Labor Labor/2nd/3rd Weight Sex Type Anes PTL Racquel A1 A5 Name Clin SAB 2022 Term 38w 3d 1h 52m 1h 00m/0h 46m/0h 06m 3.14 kg (6 lb 14.8 oz) M Vag-S pont Epidur al N Livin g 9 9 ALONZO PATEL N Melanie Samuel MD Delivery Location:This [facility] Last Filed Vital Signs Vital Sign Reading [...] 09/18/2023 11:22 AM CDT Plan of Treatment Health Maintenance Due Date Last Done Comments Cervical Cancer Screening 2001 Hepatitis C Screening 2001 Pneumococcal vaccine <65 (1 of 1 - PPSV23) 2007 10/02/2005, 02/27/2002, 02/27/2002 Meningococcal B Vaccine (1 o f 2 - Standard) 2017 Regular Well Visit/Exam 18-64 2019 DTaP/Tdap/Td Vaccine (7 - Td or Tdap) 02/08/2023 02/08/2013, 10/22/2006, 10/02/2005, Additional history exists Depression Screening 03/26/2023 03/26/2022, 03/26/2022, 03/18/2022, Additional history exists Covid-19 Vaccine (3 - 2023-2 5 season) 2023 06/11/2020, 04/20/2020 Influenza Vaccine (#1) 2023 Hepatitis B Screening Completed 2001 , 2001, 2001, Additional history exists Varicella Vaccines Completed 10/22/2006, 10/02/2005 HPV Vaccines Completed 10/02/2016, 08/08/2014 Insurance [facility] PL[facility] ZENON CAMERON [facility] Advance Directives For more information, please contact: [phone] * Full Code (Latest Code Status on File) Date Activated Date Inactivated Comments 03/28/2022 9:14 AM 03/30/2022 6:40 PM * Full Code Date Activated Date Inactivated Comments 03/28/2022 8:47 AM 03/28/2022 9:14 AM Full CPR in case of cardiopulmonary arrest * Full Code Date Activated Date Inactivated Comments 03/28/2022 12:16 AM 03/28/2022 8:47 AM Full CPR in case of cardiopulmonary arrest Care Teams Rock Crushing Machine Operator Relationship Specialty Start Date End Date No, Physician PCP - General 09/18/23
--- OUTSIDE RECORDS SUMMARY | 2024-03-31 11:42 | XMS_ITS | Clinical Summary ---
Author Organization [facility] Address [address] [place] [address] Phone Care Team Providers Care Engineer Soils Name Role Phone Shelbie Ward MD Primary Care Provider [phone] Allergies No known active allergies Medications ondansetron (Zofran ODT) 4 MG TABLET DISPERSIBLE Take 1 Tablet by mouth every 8 hours as needed for Nausea - 1st line. 10 Tablet 05/18/2021 Active Social History Tobacco Use Types Packs/Day Years Used Date Smoking Tobacco: Never Smokeless Tobacco: Never Alcohol Use Standard Drinks/Week Comments Not Currently 0 (1 standard drink = 0.6 oz pur e alcohol) Comments Unknown Sex and Gender Information Value Date Recorded Sex Assigned at Not on file Legal Sex Female 3:27 AM CDT Gender Identity Not on file Sexual Orientation Not on file Last Filed Vital Signs Vital Sign Reading Time Taken Comments Blood Pressure 135/77 05/18/2021 5:00 PM CDT Pulse 98 05/18/2021 5:00 PM CDT Temperature 36.7 C (98.1 F) 05/18/2021 1:58 PM CDT Respiratory Rate 16 05/18/2021 5:00 PM CDT Oxygen Saturation 99% 05/18/2021 5:00 PM CDT Inhaled Oxygen Concentration - - Weight 108.9 kg (240 lb) 05/18/2021 1:58 PM CDT Height 160 cm (5' 3 ) 05/18/2021 1:58 PM CDT Body Mass Index 42.51 05/18/2021 1:58 PM CDT Plan of Treatment Health Maintenance Due Date Last Done Comments Hepatitis C Virus (HCV) Screening 2001 Meningococcal B Immunization (1 of 2 - Standard) 2017 Pap Smear 2022 Influenza Immunization (#1) 2023 SARS-COV-2 Immunization ( season) 2023 06/11/2020, 04/20/2020 Respiratory Syncytial Virus (RSV) Immunization (Adult) (1 - 1-dose 75+ series) 02/17/2076 Hepatitis B Immunization Completed 002, 2001, 2001, Additional history exists Pneumococcal Immunization Combined Aged Out 10/02/2005, 02/27/2002, 02/27/2002 No longer eligible based on patient's age to complete this topic Measles Mumps Rubella (MMR) Immunization Discontinued 10/22/2006, 10/02/2005 Polio (IPV) Immunization Discontinued 007, 10/02/2005, 2001, Additional history exists Varicella Immunization Discontinued 10/22/2006, 2005 DTaP/Tdap/Td Immunization Discontinued 2013, 10/22/2006, 10/02/2005, Additional history exists TdaP Immunization Completed 02/08/2013 Hepatitis A Immunization Discontinued 017, 10/02/2005, 10/02/2005, Additional history exists Human Papillomavirus (HPV) Immunization Completed 10/02/2016, 08/08/2014 Meningococcal Immunization (ACWY) Aged Out 10/02/2016 No longer eligible based on patient's age to complete this topic Rotavirus Immunization Aged Out No lo nger eligible based on patient's age to complete this topic Insurance [facility] Care Teams Engineer Soils Relationship Specialty Start Date End Date Shelbie Ward MD [address] [address] PCP - General Family Medicine 07/31/18
--- OUTSIDE RECORDS SUMMARY | 2024-03-31 11:42 | XMS_ITS | Encounter Summary ---
Author Organization [facility] Address [address] [place] [address] Care Team Providers Care Rental Representative Name Role Phone Yovani Negron MD Primary Care Provider [phone] Liberty Mcfarland SNOW SHOVELER-CLINICAL AUDITOR Unavailable Encounter Details Date Type Department Care Team (Late st Contact Info) Description 06/26/2021 Patient Outreach [facility] [address] [place] [id number] Luz Talamantes, RN Social History Tobacco Use Types Packs/Day Years Used Date Smoking Tobacco: Former Cigarettes Smokeless Tobacco: Never Alcohol Use Standard Drinks/Week Comments Yes 0 (1 standard drink = 0.6 oz pur e alcohol) occasionally PHQ-2 Answer Date Recorded PHQ2 TOTAL SCORE 0 05/20/2021 Sex and Gender Information Value Date Recorded Sex Assigned at Not on file Gender Identity Not on file Sexual Orientation Not on file documented as of this encounter Plan of Treatment Not on file documented as of this encounter Visit Diagnoses Not on filedocumented in this encounter Care Teams Rental Representative Relationship Specialty Start Date End Date Yovani Negron MD PCP - General 11/18/18 Liberty Mcfarland, SNOW SHOVELER-CLINICAL AUDITOR [address] [place] [address] PCP - Attributed-[employer] Medicaid [place] 12/09/21 01/26/24 documented as of this encounter
--- OUTSIDE RECORDS SUMMARY | 2024-03-31 11:42 | XMS_ITS | Encounter Summary ---
Author Organization [facility] Address [address] [place] [address] Care Team Providers Care Coroner Name Role Phone Yovani Negron MD Primary Care Provider [phone] Liberty Mcfarland SAMPLE CUTTER-PSYCHOLOGY LECTURER Unavailable [phone] Reason for Visit * Reason Onset Date Comments Miscarriage 02/05/2021 Encounter Details Date Type Department Care Team (Late st Contact Info) Description 02/05/2021 Telephone [facility] [address] [place] [address] Julissa Guzman MD [address] [place] [address] Miscarriage Social History Tobacco Use Types Packs/Day Years Used Date Smoking Tobacco: Every Day Cigarettes Smokeless Tobacco: Never Alcohol Use Standard Drinks/Week Comments No 0 (1 standard drink = 0.6 oz pur e alcohol) Sex and Gender Information Value Date Recorded Sex Assigned at Not on file Gender Identity Not on file Sexual Orientation Not on file documented as of this encounter Miscellaneous Notes * Telephone Encounter - Zahida Ness MD - 02/05/2021 2:14 PM CST Agree with A/P below. OR PHP DEVELOPER * Telephone Encounter - Lesly Reyes RN - 02/05/2021 2:06 PM SENIOR PHP DEVELOPER RN returned call to patient and her mother. Pt stating her LMP 12/22/20 and had positive test on 01/30 and 01/31. Per pt started having heavy bleeding and cramps last night. Pt given pain and bleeding precautions. Per pt cramps are centralized and bleeding only heavy when urinating but not while standing/moving. New orders placed for serial HCG labs and faxed to requested [facility] in [place]. CHLOE Riley OR PHP DEVELOPER * Telephone Encounter - Jessie Nation - 02/05/2021 12:27 PM CST Pt mom,Adenike Patel, called in stating that pt may have had a miscarriage and would like to be contacted at . OR PHP DEVELOPER documented in this encounter Plan of Treatment Scheduled Orders Name Type Priority Associated Diagnoses Orde r Schedule HCG BETA BLOOD QUANTITATIVE Lab Routine Bleeding in early (HCC) Ordered: 02/05/2021 documented as of this encounter Procedures Procedure Name Priority Date/Time Associated Diagnosis Comments HCG BETA BLOOD QUANTITATIVE Routine 02/05/2021 3:05 PM SENIOR PHP DEVELOPER Bleeding in early (HCC) documented in this encounter Results * HCG BETA BLOOD QUANTITATIVE (02/05/2021 3:05 PM SENIOR PHP DEVELOPER) Pathologist [facility] HCG Quant <3 mIU/mL [facility] Comment: Reference Range Non or premenopausal <5 Postmenopausal <10 Values from different assay methods may vary. The use of this assay to monitor or to diagnose patients with cancer or any condition unrelated to has not been cleared or approved by the FDA or the eye surgeon of the assay. Test Performed at: [facility] [address] [place] [address] KRISTI RICKS DO,MPH Blood BLOOD SPECIMEN / Unknown 02/05/2021 3:05 PM SENIOR PHP DEVELOPER 02/05/2021 3:05 PM SENIOR PHP DEVELOPER Zahida Ness MD LAB - CHEMISTRY [address]BY [address] [address] [place] [address] documented in this encounter Visit Diagnoses Diagnosis Bleeding in early (HCC)- Primary Unspecified hemorrhage in early , unspecified as to episode of care documented in this encounter Care Teams Coroner Relationship Specialty Start Date End Date Yovani Negron MD PCP - General 11/18/18 Liberty Mcfarland, SAMPLE CUTTER-PSYCHOLOGY LECTURER [address] [place] [address] PCP - Attributed-[employer] 12/09/21 01/26/24 documented as of this encounter
--- OUTSIDE RECORDS SUMMARY | 2024-03-31 11:43 | XMS_ITS | Clinical Summary ---
Author Organization [facility] Address [address] [place] [address] Phone Care Team Providers Care Kiln Mechanic Name Role Phone KELSI SANDRA MD Primary Care Provider Reason for Visit and Chief Complaint The Chief Complaint is: PPV; 03/28/22 Plan of Treatment No Plan of Treatment Recorded Assessments Includes: Assessments from this encounter Findings - Routine history and physical - Last Documented On 05/07/2022 11:13AM ; [facility] Medical Equipment - Implanted Devices Includes: Current Devices No Medical Equipment Recorded Medications Includes: Medications discussed during this encounter and other current Medications Current Medications (continue as prescribed) Tylenol 325 MG Oral Tablet 03/19/2022 Provider: Diagnosis: Last Documented On 3 3:26PM By ABBE AVILES ; [facility] 19 Oral Tablet 09/05/2021 Provider: [facility] Diagnosis: One tablet daily Last Documented On 2 11:10AM By MAGDI MAXWELL CARLENE-BC ; [facility] Medications Administered Includes: Administered Medications from this encounter No Administered Medications Recorded Vital Signs Includes: Vital Signs from this encounter Vital Name 05/07/2022 10:43A Blood Pressure Sitting (mmHg) 120/70 Height (in) 63 Weight (lb) 194 Body Mass Index 34.4 Body Surface Area 1.9 Last Documented: On 05/07/2022 10:46A M ; [facility] Results Includes: Results discussed during this encounter No Results Recorded For Specified Dates History of Present Illness Includes: History of Present Illness from this encounter OPAL SCHRADER is a 22 year old female. - Allergy list reviewed - Medication list reviewed - Bleeding has stopped after 2 weeks but still spotting off and on - No pain - Bowel movement frequency has not recently changed - Date of last menstruation 03/28/2022 and still occ spotting - No urinary symptoms - No depression Pllanning on breast feeding till [age] year old. Exclucively breast milk. Not sexually active post . He is planning on a vasectomy. (he already has one from before) Social History Description Last Updated Not sexually active 3 Last Documented On 3 11:13AM ; [facility] Smoking Status Unknown Procedures and Surgical History Includes: Procedures from this encounter Procedures Code Diagnosis Performing Provider Service L ocation Service Date Clinical summary provided to patient Last Documented On 3 11:06AM ; [facility] [place] Depression Scale =3 Last Documented On 3 11:06AM ; [facility] Medical History Includes: Medical History addressed during this encounter Description Last Updated Contraception: Boyfriend getting a vasec misael and condoms 100% until then 05/07/2022 Last Documented On 3 11:13AM ; [facility] is bottle-feeding breast milk onl y 05/07/2022 Last Documented On 3 11:13AM ; [facility] Infant is breast-feeding 05/07/2022 Last Documented On 3 11:13AM ; [facility] Baby thriving 03/28/22 A MH 38- 3/7 weeks 6# 14.8 oz Male circumcised Oscar Adkinsg 05/07/2022 Last Documented On 3 11:13AM ; [facility] Last pap smear date 09/05/2021 05/07/2022 Last Documented On 3 11:13AM ; [facility] Family History Includes: Family History addressed during [...] Location Date Check-In Time Check-Out Time Diagnosis POST VISIT KELSI SANDRA MD [facility] [place] 05/08/19 9:33AM 11:12AM Routine History and Physical Insurance Includes: Active Insurance Policies Plan Name Member ID Group # Subscriber Relationship Effect maira Dates 1 - [facility] PLANS [id number] TATY SCHRADER Self Clinical Notes Includes: Clinical Notes from this encounter * Progress note Date Encounter Last Documented by 05/07/2022 POST VISIT Last documente d on 05/07/2022; 11:13 AM, KELSI SANDRA MD; [facility] Chief Complaint The Chief Complaint is: PPV; 03/28/22. History of Present Illness TATY SCHRADER is a 22 year old female. - Allergy list reviewed - Medication list reviewed - Bleeding has stopped after 2 weeks but still spotting off and on - No pain - Bowel movement frequency has not recently changed - Date of last menstruation 03/28/2022 and still occ spotting - No urinary symptoms - No depression Pllanning on breast feeding till [age] year old. Exclucively breast milk. Not sexually active post . He is planning on a vasectomy. (he already has one from before) Current Medication - 19 Oral Tablet One tablet daily, 30 days, 11 refills - Tylenol 325 MG Oral Tablet 0 days, 0 refills Past Medical/Surgical History Reported: Last pap smear date 09/05/2021 and Contraception: Boyfriend getting a vasectomy and condoms 100% until then. Dietary: is breast-feeding and is bottle-feeding breast milk only. : Baby thriving 03/28/22 [facility] 38- 3/7 weeks 6# 14.8 oz Male circumcised Oscar Rogers Velazquez . Social History Sexual: Not sexually active . Allergies - No Known Allergies Physical Findings - Vitals taken 05/07/2022 10:43 am BP-Sitting 120/70 mmHg Height 63 in Weight 194 lbs Body Mass Index 34.4 kg/m2 Body Surface Area 1.9 m2 Genitalia: External: - Genitalia showed no abnormalities. Pelvic: Vagina: - Normal. - No vaginal discharge was observed. Cervix: - Normal. - Not tender. Uterus: - Normal. - Not enlarged. - Not tender. Uterine Adnexae: - Normal. - Uterine adnexa was not tender. Tests Educational Testing: [place] Depression Scale =3. Assessment - Routine history and physical Therapy - Clinical summary provided to patient. Discussed Condoms 100% oif the time till he is released by the urologist after the vasectomy. Pt states she does not need a RTW note. Plan StartCited - Other Follow-up return for [facility] after 09/05/22. EndCited
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
--- OUTSIDE RECORDS SUMMARY | 2024-03-31 11:43 | XMS_ITS ---
Author Organization [facility] Address [address] [place] [phone] Phone Care Team Providers Care High Rigger Name Role Phone KELSI SANDRA MD Primary Care Provider Problems Includes: Active, inactive, and resolved Problems All Visits Onset Date Resolved Date Provider Condition S tatus Drug Use 10/02/2021 Unknown KELSI SANDRA MD Resolved Last Documented On 06/17/2022 10:20AM ; [facility] Note: was Closed. History of Allergic Rhinitis 10/02/2021 Unknown KELSI SANDRA MD Resolved Last Documented On 06/17/2022 10:20AM ; [facility] Note: was Closed. History of Breast Disorders 10/02/2021 Unknown KELSI SANDRA MD Resolved Last Documented On 06/17/2022 10:20AM ; [facility] Note: was Closed. History of Depression 10/02/2021 Unknown KELSI SANDRA MD Resolved Last Documented On 06/17/2022 10:20AM ; [facility] Note: was Closed. History of Diabetes Mellitus 10/02/2021 Unknown KELSI SANDRA MD Resolved Last Documented On 06/17/2022 10:20AM ; [facility] Note: was Closed. History of Essential Hypertension 10/02/2021 Unknown KELSI SANDRA MD Resolved Last Documented On 06/17/2022 10:20AM ; [facility] Note: was Closed. History of Heart Disease 10/02/2021 Unknown KELSI SANDRA MD Resolved Last Documented On 06/17/2022 10:20AM ; [facility] Note: was Closed. History of Hematologic Disorders 10/02/2021 Unknown KELSI SANDRA MD Resolved Last Documented On 06/17/2022 10:20AM ; [facility] Note: was Closed. History of Psychiatric Disorders 10/02/2021 Unknown KELSI SANDRA MD Resolved Last Documented On 06/17/2022 10:20AM ; [facility] Note: was Closed. History of Recurrent Loss (Gravid) 10/02/2021 Unknown KELSI SANDRA MD Resolved Last Documented On 06/17/2022 10:20AM ; [facility] Note: was Closed. History of Reported Physical Trauma 10/02/2021 Unknown KELSI SANDRA MD Resolved Last Documented On 06/17/2022 10:20AM ; [facility] Note: was Closed. Reported Previous Std 10/02/2021 Unknown KELSI SANDRA MD Resolved Last Documented On 06/17/2022 10:20AM ; [facility] Note: was Closed. Respiratory Disorders 10/02/2021 Unknown KELSI SANDRA MD Resolved Last Documented On 06/17/2022 10:20AM ; [facility] Note: was Closed. 05/30/2021 Unknown KELSI SANDRA MD Resolved Last Documented On 06/17/2022 10:20AM ; [facility] Note: was Closed. Plan of Treatment Findings Encounter Date Ordered Clinical summary pro vided to patient RETURN OB EXAM with MAGDI MAXWELL NP-BC 02/12/2022 Last Documented On 3 1:53PM ; [facility] Ordered Clinical summary pro vided to patient RETURN OB EXAM with MAGDI Villafuerte MAXWELL NP-BC 12/25/2021 Last Documented On 2 2:16PM ; [facility] Ordered Clinical summary pro vided to patient RETURN OB EXAM with MAGDI Villafuerte MAXWELL NP-BC 10/27/2021 Last Documented On 2 2:01PM ; [facility] Ordered Clinical summary pro vided to patient MISSED MENSES - NEW PT with MAGDI MAXWELL NP-BC 09/05/2021 Last Documented On 2 10:58AM ; [facility] Instructions to patient Instructions for patient : B reast Self Exam discussed and technique reviewed Last Documented On 3 2:35PM ; [facility] Intervention and counseling on cessation of tobacco use Last Documented On 3 2:39PM ; [facility] Education and Decision Aids were provided during visit for: Bacterial Vaginosis Informat ion Sheet Given Last Documented On 2 10:57AM ; [facility] New OB form given to patient SAB precautions reviewed and pnv samples given. Advised H1N1 and seasonal flu vaccine. Also advised Covid vaccine in accordance with ACOG and CDC guidelines Last Documented On 2 10:07AM ; [facility] Assessments Includes: Assessments for all patient encounters Findings Encounter Date Fibrocystic disease of breast WELL WOMAN - ESTABLISHED PT with KELSI SANDRA MD 10/26/2022 Last Documented On 3 2:52PM ; [facility] NORMAL FEMALE EXAM WELL WOMAN - ESTABLISHED PT w ith KELSI SANDRA MD 10/26/2022 Last Documented On 3 2:52PM ; [facility] Routine history a nd physical POST VISIT with KELSI SANDRA MD 05/07/2022 Last Documented On 3 11:13AM ; [facility] Routine checkup (6 - 42 wk) * P CHANEL CALL with MAGDI MAXWELL CARLENE- 03/25/2022 Last Documented On 3 12:45PM ; [facility] Routine checkup (6 - 42 wk) RET URN OB EXAM with MAGDI MAXWELL CARLENE-BC 02/12/2022 Last Documented On 3 1:53PM ; [facility] Routine checkup (6 - 42 wk) RET URN OB EXAM with MAGDI MAXWELL NP-BC 12/25/2021 Last Documented On 2 2:16PM ; [facility] Routine checkup (6 - 42 wk) RET URN OB EXAM with MAGDI MAXWELL NP-BC 10/27/2021 Last Documented On 2 2:01PM ; [facility] Amenorrhea 12 3/7 weeks by Renata MANZO with EDC 2--23 MISSED MENSES - NEW PT with MAGDI Christo ALISSA NP-BC 09/05/2021 Last Documented On 2 10:58AM ; [facility] Instructions Includes: Instructions for all patient encounters Instructions to patient Instructions for patient : B reast Self Exam discussed and technique reviewed Last Documented On 3 2:35PM ; [facility] Intervention and counseling on cessation of tobacco use Last Documented On 3 2:39PM ; [facility] Education and Decision Aids were provided during visit for: Bacterial Vaginosis Informat ion Sheet Given Last Documented On 2 10:57AM ; [facility] New OB form given to patient SAB precautions reviewed and pnv samples given. Advised H1N1 and seasonal flu vaccine. Also advised Covid vaccine in accordance with ACOG and CDC guidelines Last Documented On 2 10:07AM ; [facility] Medical Equipment - Implanted Devices Includes: Current and historical Devices No Medical Equipment Recorded Medications Includes: Current and historical Medications Current Medications (continue as prescribed) Tylenol 325 MG Oral Tablet 03/19/2022 Provider: Diagnosis: Last Documented On 3 3:26PM By ABBE AVILES ; [facility] 19 Oral Tablet 09/05/2021 Provider: JENNIFER MAXWELL NP-BC Diagnosis: One tablet daily Last Documented On 2 11:10AM By MAGDI MAXWELL [facility] ; [facility] Past Medications on file Macrobid 100 MG Oral Capsule 10/27/2021 - 11/27/2021 Blas sanchezder: MAGDI MAXWELL WHNP-BC Diagnosis: One tablet twice a day Last Documented On 2 11:02AM By ABBE AVILES ; [facility] Vitamins Oral Tablet 09/05/2021 - 12/25/2021 Provider: Diagnosis: Last Documented On 12/25/2021 1:53PM By Eneida Ortiz ; [facility] metroNIDAZOLE 500 MG Oral Tablet 09/05/2021 - 10/02/2021 Provider: MAGDI MAXWELL WH [employer] TIGHT-BC Diagnosis: One tablet twice a day Last Documented On 2 1:06PM By ABBE AVILES ; [facility] Medications Administered Includes: Administered Medications in patient's chart No Administered Medications Recorded Results Includes: Results from 03/31/2023 through 03/31/2024 No Results Recorded For Specified Dates History of Present Illness History of Present Illness not supported for this document type No History of Present Illness Recorded Social History Description Last Updated Alcohol use occ: one drink per month Last Documented On 3 2:52PM ; [facility] Drug use marijuana sometimes: hit 2 x pe r month; 10/26/2022 Last Documented On 3 2:52PM ; [facility] Tobacco use 10/26/2022 Last Documented On 3 2:52PM ; [facility] Smoking electronic cigarettes : still va ping: a cartridge per week: NTQS 10/26/2022 Last Documented On 3 2:52PM ; [facility] Exercising regularly 10/26/2022 Last Documented On 3 2:52PM ; [facility] Marital history Same boyfriend since 1 10/26/2022 Last Documented On 3 2:52PM ; [facility] Sexually active 10/26/2022 Last Documented On 3 2:52PM ; [facility] Sexually active with 1 partners in the l ast year 10/26/2022 Last Documented On 3 2:52PM ; [facility] Not sexually active 3 Last Documented On 3 11:13AM ; [facility] Former smoker 09/05/2021 Last Documented On 2 10:58AM ; [facility] Stopped smoking 2 years ago 09/05/2021 Last Documented On 2 10:58AM ; [facility] Smoking Status Unknown Medical History Includes: Medical History in patient's chart Description Last Updated is breast-feeding : planning on b reast feeding till [age] year old 10/26/2022 Last Documented On 3 2:52PM ; [facility] LMP: 10/25/2022 10/26/2022 Last Documented On 3 2:52PM ; [facility] Contraception: condoms 100% 10/26/2022 Last Documented On 3 2:52PM ; [facility] Vaginal delivery 03/28/22 10/26/2022 Last Documented On 3 2:52PM ; [facility] Infant is bottle-feeding breast milk onl y 05/07/2022 Last Documented On 3 11:13AM ; [facility] Baby thriving 03/28/22 A MH 38- 3/7 weeks 6# 14.8 oz Male circumcised Oscar Mccloud Dunsing 05/07/2022 Last Documented On 3 11:13AM ; [facility] Last pap smear date 09/05/2021 05/07/2022 Last Documented On 3 11:13AM ; [facility] History of allergic rhinitis 10/02/2021 Last Documented On 2 2:08PM ; [facility] History of breast disorders 10/02/2021 Last Documented On 2 2:08PM ; [facility] History of depression 10/02/2021 Last Documented On 2 2:08PM ; [facility] History of heart disease 10/02/2021 Last Documented On 2 2:08PM ; [facility] History of hematologic disorder 10/03/19 22 Last Documented On 2 2:08PM ; [facility] History of psychiatric disorders 022 Last Documented On 2 2:08PM ; [facility] History of recurrent loss (gra vid) 10/02/2021 Last Documented On 2 2:08PM ; [facility] Physical trauma 10/02/2021 Last Documented On 2 2:08PM ; [facility] Aborta 1 Patient miscarried in 2021 around 5 weeks gest 09/05/2021 Last Documented On 2 10:58AM ; [facility] 2 09/05/2021 Last Documented On 2 10:58AM ; [facility] Family History Includes: Family History in patient's chart Description Last Updated Maternal history of breast cancer MGGM a t 42 per pt 10/26/2022 Last Documented On 3 2:52PM ; [facility] First child named Oscar (TAINA sher) 10/26/2022 Last Documented On 3 2:52PM ; [facility] Daughter's history of depression 023 Last Documented On 3 2:52PM ; [facility] Family history of hepatic disorders Barlow rnal uncle liver failure 10/26/2022 Last Documented On 3 2:52PM ; [facility] Maternal history of ovarian cancer MGGM 10/26/2022 Last Documented On 3 2:52PM ; [facility] Maternal history of psychiat amber disorders Pt and maternal aunt bipolar disorder 10/26/2022 Last Documented On 3 2:52PM ; [facility] Paternal history of Alzheimer disease PG F ~PGM dementia 10/26/2022 Last Documented On 3 2:52PM ; [facility] Paternal history of colon ca ncer PGM dx at age 33- from throat and bone cancer 10/26/2022 Last Documented On 3 2:52PM ; [facility] Paternal history of diabetes mellitus pa ternal aunt 10/26/2022 Last Documented On 3 2:52PM ; [facility] Paternal history of stroke syndrome PGM ~PGF 10/26/2022 Last Documented On 3 2:52PM ; [facility] Paternal history of systemic hypertensio n dad 10/26/2022 Last Documented On 3 2:52PM ; [facility] Sororal history of thyroid disorder 10/09 Last Documented On 3 2:52PM ; [facility] Review of Systems Review of Systems not supported for this document type No Review of Systems Recorded Mental Status Description Oriented to time, place, and person No anxiety Functional Status No Functional Status Recorded Physical Exam Physical Exam not supported for this document type No Physical Exam Recorded Allergies Includes: Active, inactive, and resolved Allergies No Known Allergies Insurance Includes: Active Insurance Policies Plan Name Member ID Group # Subscriber Relationship Effect maira Dates 1 - [facility] [employer] [id number] TATY Alvarez Clinical Notes Includes: Signed Clinical Notes starting from 02/27/2022 No Clinical Notes Recorded
--- OUTSIDE RECORDS SUMMARY | 2024-03-31 11:43 | XMS_ITS | Clinical Summary ---
Author Organization [facility] Address [address] [place] [phone] Phone Care Team Providers Care Tie Tamper Name Role Phone KELSI SANDRA MD Primary [...] On 3 3:26PM By ABBE AVILES ; [facility] 19 Oral Tablet 09/05/2021 [facility] Diagnosis: One tablet daily Last Documented On 2 11:10AM By [facility]DI [facility] ; [facility] Medications Administered Includes: Administered Medications from this encounter No Administered Medications Recorded Vital Signs Includes: Vital Signs from this encounter Vital Name 03/19/2022 03:30P Blood Pressure Sitting (mmHg) 104/62 Weight (lb) 208 Last Documented: On 03/19/2022 3:30PM ; [facility] Results Includes: Results discussed during this encounter [...] Diagnosis RETURN OB EXAM KELSI SANDRA MD [facility] 3:23PM 03/20/2022 7:42AM Insurance Includes: Active Insurance Policies Plan Name Member ID Group # Subscriber Relationship Effect maira Dates 1 - [facility] PLANS [id number] TATY SCHRADER Self Clinical Notes Includes: Clinical Notes from this encounter * Progress note Date Encounter Last Documented by 03/19/2022 RETURN OB EXAM Last documented on 03/19/2022; 3:56 PM, KELSI SANDRA MD; [facility] History of Present Illness TATY [...]
--- OUTSIDE RECORDS SUMMARY | 2024-03-31 11:43 | XMS_ITS | Clinical Summary ---
Author Organization [facility] Address [address] [place] [phone] Phone Care Team Providers Care Diamond Cleaner Name Role Phone KELSI SANDRA MD Primary Care Provider Reason for Visit and Chief Complaint RETURN OB EXAM Problems Includes: Problems addressed during this encounter and other active Problems All Visits Onset Date Resolved Date Provider Condition S tatus Drug Use 10/02/2021 Unknown KELSI SANDRA MD Resolved Last Documented On 06/17/2022 10:20AM ; [facility] Note: was Closed. History of Allergic Rhinitis 10/02/2021 Unknown KELSI SANDRA MD Resolved Last Documented On 06/17/2022 10:20AM ; [facility] Note: was Closed. History of Breast Disorders 10/02/2021 Unknown KELSI SANDRA MD Resolved Last Documented On 06/17/2022 10:20AM ; [facility] Note: was Closed. History of Depression 10/02/2021 Unknown KELSI SANDRA MD Resolved Last Documented On 06/17/2022 10:20AM ; [facility] Note: was Closed. History of Diabetes Mellitus 10/02/2021 Unknown KELSI SANDRA MD Resolved Last Documented On 06/17/2022 10:20AM ; [facility] Note: was Closed. History of Essential Hypertension 10/02/2021 Unknown KELSI SANDRA MD Resolved Last Documented On 06/17/2022 10:20AM ; [facility] Note: was Closed. History of Heart Disease 10/02/2021 Unknown KELSI SANDRA MD Resolved Last Documented On 06/17/2022 10:20AM ; [facility] Note: was Closed. History of Hematologic Disorders 10/02/2021 Unknown KELSI SANDRA MD Resolved Last Documented On 06/17/2022 10:20AM ; [facility] Note: was Closed. History of Psychiatric Disorders 10/02/2021 Unknown KELSI SANDRA MD Resolved Last Documented On 06/17/2022 10:20AM ; [facility] Note: was Closed. History of Recurrent Loss (Gravid) 10/02/2021 Unknown KELSI SANDRA MD Resolved Last Documented On 06/17/2022 10:20AM ; [facility] Note: was Closed. History of Reported Physical Trauma 10/02/2021 Unknown KELSI SANDRA MD Resolved Last Documented On 06/17/2022 10:20AM ; [facility] Note: was Closed. Reported Previous Std 10/02/2021 Unknown KELSI SANDRA MD Resolved Last Documented On 06/17/2022 10:20AM ; [facility] Note: was Closed. Respiratory Disorders 10/02/2021 Unknown KELSI SANDRA MD Resolved Last Documented On 06/17/2022 10:20AM ; [facility] Note: was Closed. 05/30/2021 Unknown KELSI SANDRA MD Resolved Last Documented On 06/17/2022 10:20AM ; [facility] Note: was Closed. Plan of Treatment No [...] On 3 3:26PM By ABBE AVILES ; [facility] 19 Oral Tablet 09/05/2021 Provider: JENNIFER CORREIA-BC Diagnosis: One tablet daily Last Documented On 2 11:10AM By MAGDI CORREIA-BC ; [facility] Medications Administered Includes: Administered Medications from this encounter No Administered Medications Recorded Vital Signs Includes: Vital Signs from this encounter Vital Name 03/26/2022 02:26P Blood Pressure Sitting R 110/58 Weight (lb) 213 Last Documented: On 03/26/2022 2:26PM ; [facility] Results Includes: Results discussed during this encounter No Results Recorded For Specified Dates History of Present Illness Includes: History of Present Illness from this encounter HPI TATY SCHRADER is a 22 year old [...] Diagnosis RETURN OB EXAM KELSI SANDRA MD [facility] 3 2:19PM 3:22PM Insurance Includes: Active Insurance Policies Plan Name Member ID Group # Subscriber Relationship Effect maira Dates 1 - [facility] PL[facility] [id number] TATY SCHRADER Self Clinical Notes Includes: Clinical Notes from this encounter * Progress note Date Encounter Last Documented by 03/26/2022 RETURN OB EXAM Last documented on 03/26/2022; 2:57 PM, KELSI SANDRA MD; [facility] History of Present Illness TATY SCHRADER is a 22 year old female. - Allergy list reviewed - Medication list reviewed Current Medication - 19 Oral Tablet One tablet daily, 30 days, 11 refills - Tylenol 325 MG Oral Tablet 0 days, 0 refills Allergies - No Known Allergies Physical Findings - Vitals taken 03/26/2022 02:26 pm BP-Sitting R 110/58 mmHg Weight 213 lbs OB Visit Return Visit Risk Factors [...] 04/08/2022 (by ultrasound) Gestational Age: 38 weeks 1 day Weight: 213 lb Baseline Weight: 232 lb Weight Change: -19 lb UA Dipstick Protein: Negative Glucose: Negative Nitrite: Negative Leukocyte: Trace Blood: Negative Ketones: Negative Movement (as per patient): positive Uterine Size/Fundal Height: 37 cm Presentation: vertex Heart Rate: 150 bpm Edema: None Cervix: 1cm/90%/-1 Shea, pts mom present today; Pt states she feels good baby movement and no c/o; cx: 1, 90%, -1; has u/s this afternoon; Options to conclude preg discussed; R/B/A of cervidil vs cervidil/ pitocin vs just pitocin discussed including risk of section, quest answ and pt expresses understanding and elects pitocin indxn next 04/02 at 0030. Plan StartCited - Other Surgery Scheduling pitocin induction per guidelines: 2904/02/22; Follow-up keep u/s as planned this afternoon: it will help determine timing of additional NST's; pitocin indxn next 29 on 04/02/22; EndCited
--- OUTSIDE RECORDS SUMMARY | 2024-03-31 11:43 | XMS_ITS ---
Care Plan - [facility] Created on: March 31, 2024 TATY SCHRADER : 2000 Sex: Female Author Organization [facility] Address [address] [place] [phone] Phone Care Team Providers Care Title Closer Name Role Phone KELSI SANDRA MD Primary Care Provider [phone]
--- OUTSIDE RECORDS SUMMARY | 2024-03-31 11:43 | XMS_ITS | Continuity of Care Document ---
Author Organization [facility] Address [address] [place] [address] Phone Care Team Providers Care Farmworkers Name Role Phone Anjelica Bedoya MD Unavailable Unavailable Allergies, Adverse Reactions, Alerts Substance Reaction Status Criticality No Known Drug Allergies Active No I nformation Medications Medication Instructions Dosage Effective Dates (start - stop) Status Comments methylphenidate ER 20 mg multiphase capsule -70,extended release - Active amoxicillin 875 mg-potassium clavulanate 125 mg tablet - Active Concerta 18 mg tablet,extended release 1 tablet extended release 24hr by Oral route every morning - Active triamcinolone acetonide 0.1 % topical cream 1 applic by Topical route 2 times per day to underarm rash - Active Advance Directives Directive Yes / No Effective Date File Name No Information Encounters Encounter Description Practice Location Reason(s) For Visit Diagnoses Date Provider Providers Copied on Encounter [facility] [address], [place], [place], [id number] , [place] tel:[phone] [facility] No Information 7 Aureliano Dejesus. [address], [place], [place], [id number] , [place]. tel: [phone] [facility] [address], [place], [place], [id number] , [place] tel: [phone] [facility] Attention deficit disorder (ADD) without hyperactivityAllergic contact dermatitis due to other agentsFeeling of sadness 6 Aureliano Dejesus. [address], [place], [place], [id number] , [place]. tel: [phone] Referring Provider: Anjelica Bedoya, [address], [place], [address] . tel:[phone] [facility], [address], [place], [place], [id number] , [place] tel: [phone] [facility] New pt est care ADD concerns (chief complaint) Attention deficit disorder (ADD) without hyperactivityAddie horan 6 Aureliano Dejseus. [address], [place], [place], [address] , [place]. tel: [phone] Referring Provider: Anjelica Bedoya, [address], [place], [address] . tel:[phone] Family History Family Member Type Diagnosis Age At Onset Maternal uncle Problem (finding) coronary arterioscler osis Paternal grandmother Problem (finding) hypertension Maternal grandmother Problem (finding) pulmonary emphy sema Father Problem (finding) GERD Maternal grandmother Problem (finding) hypertension Mother Problem (finding) Allergies Maternal aunt Problem (finding) manic-depressive state Cousin Problem (finding) Myasthenia Paternal grandmother Problem (finding) pulmonary emphy sema Father Problem (finding) attention defi cit hyperactivity disorder Cousin Problem (finding) Hip dysplasia Mother Problem (finding) migraine Paternal grandfather Problem (finding) stroke Payers Payer name Insurance type Covered constitution party ID Authorcandidaa tijosue(s) [employer] OPEN ACCESS I II III CI [id number] 1 Social History Type Description Quantity Date Captured Comments Sex Female Smoking Status No Information Chief Complaint And Reason For Visit No Information Reason For Referral Reason For Referral No Information History Of Present Illness Encounter Date Complaint History Of Prese nt Illness New pt est care ADD concerns Pre sents in the office today to discuss potential ADD. has been struggling in school. Reports can be listening to teacher and then hear a noise outside the window and get distracted trying to figure out where noise is coming from. She states she goes to put in locker combination and thinks about her password to the school computer system and tries to use this instead. She can walk down the wu, think she needs to use the restroom and afterward, forget which class she is supposed to be going to. Mother states she just has difficulty with focus. At home, unable to finish a board game, watch a movie, listen to a whole song, or finish a storied video game without losing interest. Due to inability to concentrate in class, she has difficulty with homework and instead of asking mom for help, moves on to something else and forgets she has the homework to do or moves on to a different subject and forgets to return to the unfinished one. She states she has 10 classes at school. Grades have been not good. She has failed math every year since the 5th grade. She also had to repeat 7th grade. She is currently going to summer school for math. Reports good in science and language arts but struggles with the rest. Shaina is currently in a new school. Mom states at the previous, she was evaluated and told she needed to see a counselor but parents did not agree with assessment. [place] forms reviewed. Mom's form positive for ADD. Teacher's form showed mild inattentiveness but mom states Shaina is only at summer school for 1.5 hours a few days per week so she is not sure summer teacher gets full picture.Also, Shaina has concerns about feeling like hearing is being cut off/ears full. Admits to using Qtip to clean ears out. Functional Status Date Functional Assessmen t No Information Instructions Date Instruction Additional Infor mation Irrigation done in o ffice with removal of impaction and subjetive improvement in symptoms. Related to Bilateral impacted cerumen [place] rating scale consistent with innattentive type. Will start Strattera. Discussed if not covered by insurance may need to switch to a stimulant type medication. Related to Attention deficit disorder (ADD) without hyperactivity Assessments Type Assessment Date No Information Patient Care Teams Name Effective Dates (start - stop) Status Members No Information
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
--- OUTSIDE RECORDS SUMMARY | 2024-03-31 11:44 | XMS_ITS | Continuity of Care Document ---
Author Organization [facility] Address [address] [place] [address] Phone Care Team Providers Care Tight Rope Walker Name Role Phone Anjelica Bedoya MD Unavailable [...] Diagnoses Date Provider Providers Copied on Encounter [facility], [address], [place], [place], [address] , [place] tel:[phone] [facility] Office No Information 7 Aureliano Dejesus. [address], [place], [place], [address] , [place]. tel: [phone] [facility], [address], [place], [place], [id number] , [place] tel: [phone] [facility] Office Attention deficit disorder (ADD) without hyperactivityAllergic contact dermatitis due to other agentsFeeling of sadness 6 Aureliano Dejesus. [address], [place], [place], [address] , [place]. tel: [phone] Referring Provider: Anjelica Bedoya, [address], [place], [address] . tel:[phone] [facility], [address], [place], [place], [address] , [place] tel: [phone] [facility] Office New pt est care ADD concerns (chief complaint) Attention deficit disorder (ADD) without hyperactivityAddie horan 6 Aureliano Dejesus. [address], [place], [place], [address] , [place]. tel: [phone] Referring Provider: Anjelica Bedoya, [address], [place], [address] . tel:[phone] Family History Family Member Type Diagnosis Age [...] stroke Payers Payer name Insurance type Covered libertarian ID Authorcandidaa tijosue(s) [employer] OPEN ACCESS I II III CI [id number] Social History Type Description Quantity Date [...]
--- OUTSIDE RECORDS SUMMARY | 2024-03-31 11:44 | XMS_ITS ---
Care Plan - [facility] Created on: March 31, 2024 TATY SCHRADER : 2000 Sex: Female Author Organization [facility] Address [address] [place] [phone] Phone Care Team Providers Care Drilling Supervisor Name Role Phone KELSI SANDRA MD Primary Care Provider [phone]
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
--- OUTSIDE RECORDS SUMMARY | 2024-03-31 11:44 | XMS_ITS | Clinical Summary ---
Author Organization [facility] Address [address] [place] [phone] Phone Care Team Providers Care Home Day Care Provider Name Role Phone KELSI SANDRA MD Primary Care Provider Reason for Visit and Chief Complaint The Chief Complaint is: PPV; 03/28/22 Plan of Treatment No Plan of Treatment Recorded Assessments Includes: Assessments from this encounter Findings - Routine history and physical - Last Documented On 05/07/2022 11:13AM ; [facility] Medical Equipment - Implanted Devices Includes: Current Devices No Medical Equipment Recorded Medications Includes: Medications discussed during this encounter and other current Medications Current Medications (continue as prescribed) Tylenol 325 MG Oral Tablet 03/19/2022 Provider: Diagnosis: Last Documented On 3 3:26PM By ABBE AVILES ; [facility] 19 Oral Tablet 09/05/2021 Provider: [facility] Diagnosis: One tablet daily Last Documented On 2 11:10AM By MAGDI MAXWELL CARLENE-BC ; [facility] Medications Administered Includes: Administered Medications from this encounter No Administered Medications Recorded Vital Signs Includes: Vital Signs from this encounter Vital Name 05/07/2022 10:43A Blood Pressure Sitting (mmHg) 120/70 Height (in) 63 Weight (lb) 194 Body Mass Index 34.4 Body Surface Area 1.9 Last Documented: On 05/07/2022 10:46A M ; [facility] Results Includes: Results discussed during this encounter [...] 3 Last Documented On 3 11:13AM ; [facility] Smoking Status Unknown Procedures and Surgical History Includes: Procedures from this encounter Procedures Code Diagnosis Performing Provider Service L ocation Service Date Clinical summary provided to patient Last Documented On 3 11:06AM ; [facility] [place] Depression Scale =3 Last Documented On 3 11:06AM ; [facility] Medical History Includes: Medical History addressed during this encounter Description Last Updated Contraception: Boyfriend getting a vasec misael and condoms 100% until then 05/07/2022 Last Documented On 3 11:13AM ; [facility] is bottle-feeding breast milk onl y 05/07/2022 Last Documented On 3 11:13AM ; [facility] Infant is breast-feeding 05/07/2022 Last Documented On 3 11:13AM ; [facility] Baby thriving 03/28/22 A MH 38- 3/7 weeks 6# 14.8 oz Male circumcised Oscar Adkinsg 05/07/2022 Last Documented On 3 11:13AM ; [facility] Last pap smear date 09/05/2021 05/07/2022 Last Documented On 3 11:13AM ; [facility] Family History Includes: Family History addressed [...] Time Diagnosis POST VISIT KELSI SANDRA MD [facility] 05/08/19 9:33AM 11:12AM Routine History and Physical Insurance Includes: Active Insurance Policies Plan Name Member ID Group # Subscriber Relationship Effect maira Dates 1 - [facility] [id number] TATY SCHRADER Self Clinical Notes Includes: Clinical Notes from this encounter * Progress note Date Encounter Last Documented by 05/07/2022 POST VISIT Last documente d on 05/07/2022; 11:13 AM, KELSI SANDRA MD; [facility] Chief Complaint The Chief [...] adnexa was not tender. Tests Educational Testing: [place] Depression Scale =3. Assessment - Routine history and physical Therapy - Clinical summary provided to patient. Discussed Condoms 100% oif the time till he is released by the urologist after the vasectomy. Pt states she does not need a RTW note. Plan StartCited - Other Follow-up return for [employer] after 09/05/22. EndCited
--- OUTSIDE RECORDS SUMMARY | 2024-03-31 11:44 | XMS_ITS | Clinical Summary ---
Author Organization [facility] Address [address] [place] [phone] Phone Care Team Providers Care Finish Patcher Name Role Phone KELSI SANDRA MD Primary Care Provider Reason for Visit and Chief Complaint RETURN OB EXAM Problems Includes: Problems addressed during this encounter and other active Problems All Visits Onset Date Resolved Date Provider Condition S tatus Drug Use 10/02/2021 Unknown KELSI SANDRA MD Resolved Last Documented On 06/17/2022 10:20AM ; [facility] Note: was Closed. History of Allergic Rhinitis 10/02/2021 Unknown KELSI SANDRA MD Resolved Last Documented On 06/17/2022 10:20AM ; [facility] Note: was Closed. History of Breast Disorders 10/02/2021 Unknown EKLSI SANDRA MD Resolved Last Documented On 06/17/2022 10:20AM ; [facility] Note: was Closed. History of Depression 10/02/2021 Unknown KELSI SANDRA MD Resolved Last Documented On 06/17/2022 10:20AM ; [facility] Note: was Closed. History of Diabetes Mellitus 10/02/2021 Unknown KELSI SANDRA MD Resolved Last Documented On 06/17/2022 10:20AM ; [facility] Note: was Closed. History of Essential Hypertension 10/02/2021 Unknown KELSI SANDRA MD Resolved Last Documented On 06/17/2022 10:20AM ; [facility] Note: was Closed. History of Heart Disease 10/02/2021 Unknown KELSI SANDRA MD Resolved Last Documented On 06/17/2022 10:20AM ; [facility] Note: was Closed. History of Hematologic Disorders 10/02/2021 Unknown KELSI SANDRA MD Resolved Last Documented On 06/17/2022 10:20AM ; [facility] Note: was Closed. History of Psychiatric Disorders 10/02/2021 Unknown KELSI SANDRA MD Resolved Last Documented On 06/17/2022 10:20AM ; [facility] Note: was Closed. History of Recurrent Loss (Gravid) 10/02/2021 Unknown KELSI SANDRA MD Resolved Last Documented On 06/17/2022 10:20AM ; [facility] Note: was Closed. History of Reported Physical Trauma 10/02/2021 Unknown KELSI SANDRA MD Resolved Last Documented On 06/17/2022 10:20AM ; [facility] Note: was Closed. Reported Previous Std 10/02/2021 Unknown KELSI SANDRA MD Resolved Last Documented On 06/17/2022 10:20AM ; [facility] Note: was Closed. Respiratory Disorders 10/02/2021 Unknown KELSI SANDRA MD Resolved Last Documented On 06/17/2022 10:20AM ; [facility] Note: was Closed. 05/30/2021 Unknown KELSI SANDRA MD Resolved Last Documented On 06/17/2022 10:20AM ; [facility] Note: was Closed. Plan of Treatment No [...] On 3 3:26PM By ABBE AVILES ; [facility] 19 Oral Tablet 09/05/2021 Provider: JENNIFER CORREIA-BC Diagnosis: One tablet daily Last Documented On 2 11:10AM By MAGDI CORREIA-BC ; [facility] Medications Administered Includes: Administered Medications from this encounter No Administered Medications Recorded Vital Signs Includes: Vital Signs from this encounter Vital Name 03/26/2022 02:26P Blood Pressure Sitting R 110/58 Weight (lb) 213 Last Documented: On 03/26/2022 2:26PM ; [facility] Results Includes: Results discussed during [...] Diagnosis RETURN OB EXAM KELSI SANDRA MD [facility] 3 2:19PM 3:22PM Insurance Includes: Active Insurance Policies Plan Name Member ID Group # Subscriber Relationship Effect maira Dates 1 - [facility] PLANS [id number] TATY SCHRADER Self Clinical Notes Includes: Clinical Notes from this encounter * Progress note Date Encounter Last Documented by 03/26/2022 RETURN OB EXAM Last documented on 03/26/2022; 2:57 PM, KELSI SANDRA MD; [facility] History of Present Illness TATY [...]
== END 2024-03-31 11:42 | disposition home or self-care (01) ==
PROVIDERS: Emergency Provider Nurse Practitioner Family
DX: J01.40 Acute pansinusitis, unspecified (principal); F17.290 Nicotine dependence, other tobacco product, uncomplicated
CPT/HCPCS: 99213; G0463